=== PATIENT | female | born 2000 | race Caucasian/White ===

== ENCOUNTER 2020-04-09 12:54 | Outpatient (CLI) | payer BC, MEDICAID, SELFPAY ==
--- NOTE | ~2020-04-09 | US_ITS ---
EXAMINATION: US OB <=14 wk fetus w TV DATE: 04/09/2020 13:37 INDICATION: First trimester dating TECHNIQUE: Real-time pelvic transabdominal and transvaginal ultrasound was performed. COMPARISON: None. FINDINGS: The uterus measures 9.2 x 5.7 x 6.1 cm. There is an intrauterine gestational sac. A yolk s ac is identified. heart motion is identified measuring 135 beats per minute (bpm) by M-mode Dop pler. The crown rump length measures 8 mm , which correlates with an estimated gestational age of 6 weeks and 5 day(s) (+/-) 4 day(s). The right ovary measures 3.3 x 1.7 x 2.2 cm. The left ovary measures 2.6 x 1.5 x 1.7 cm. There is nor mal vascular flow in the ovaries. There is no free fluid in the pelvis. IMPRESSION: 1. Live intrauterine with an estimated gestational age of 6 weeks and 5 day(s) (+/-) 4 day( s) and an estimated delivery date of 11/28/2020. Reviewed, dictated and finalized at location A. IMPRESSION: 1. Live intrauterine with an estimated gestational age of 6 weeks and 5 day(s) (+/-) 4 day(s) and an estimated delivery date of 11/28/2020.
== END 2020-04-09 12:55 | disposition home or self-care (01) ==
PROVIDERS: PCP Pediatrics; Visit Provider Nurse Practitioner
DX: Z36.87 Encounter for antenatal screening for uncertain dates (principal); Z3A.01 Less than 8 weeks gestation of pregnancy
CPT/HCPCS: 76801; 76817

== ENCOUNTER 2020-07-03 08:37 | Outpatient (CLI) | payer BC, MEDICAID, SELFPAY ==
--- NOTE | ~2020-07-03 | US_ITS ---
EXAMINATION: US OB /maternal detail DATE: 07/03/2020 09:48 INDICATION: Second trimester anatomic survey TECHNIQUE: Real-time ultrasound of the pelvis was performed. COMPARISON: None. FINDINGS: There is a single living fetus in vertex presentation. The placenta is anterior. heart rate is 142 beats per minute (bpm). cardiac activity and movement are noted. The amniotic fluid index is subjectively normal. The diaphragm, stomach, kidneys, bladder, and three-vessel cord are not well evaluated due to p ositioning and body habitus. The following anatomy was identified as normal: 4 chamber heart cord insertion spine ventricles cisterna magna cerebellum The following biometric data were obtained: Biparietal diameter (BPD): 4.0 cm; head circumference (HC): 15.4 cm; abdominal circumference (AC): 11 .1 cm; femur length (FL): 2.2 cm. The head circumference to abdominal circumference ratio is greater than two standard deviations above the mean. These measurements are otherwise concordant. Estimated weight is 178 g +/- 26 g, which correlates with the <3rd percentile when 11/27/2020 is used as estimated date of delivery. As single measurements, these parameters are each equal to the following estimated gestational ages w ith ranges of +/- 2 standard deviations: BPD: 18 weeks 3 days +/- 1 weeks 5 days. HC: 18 weeks 3 days +/- 1 weeks 3 days. AC: 17 weeks 0 days +/- 1 weeks 5 days. FL: 16 weeks 5 days +/- 1 weeks 3 days. estimated gestational age based solely on measurements from this exam is 17 weeks 5 days +/- 1 weeks 2 days. IMPRESSION: 1. Single living fetus in vertex presentation. 2. Estimated weight is 178 g +/- 26 g, which correlates with the <3rd percentile when 11/27/2020 is used as estimated date of delivery. 3. Incomplete anatomic survey due to positioning and body habitus. 4. It circumference to abdominal circumference ratio greater than two standard deviations of mean. Reviewed, dictated and finalized at location B. IMPRESSION: 1. Single living fetus in vertex presentation. 2. Estimated weight is 178 g +/- 26 g, which correlates with the <3rd per centile when 11/27/2020 is used as estimated date of delivery. 3. Incomplete anatomic survey due to positioning and body habitus. 4. It circumference to abdominal circumference ratio greater than two standard deviations of mean.
== END 2020-07-03 08:38 | disposition home or self-care (01) ==
LOC: ANHIMG 08:41
PROVIDERS: Visit Provider Obstetrics & Gynecology Gynecology
DX: Z36.89 Encounter for other specified antenatal screening (principal); Z3A.17 17 weeks gestation of pregnancy
CPT/HCPCS: 76805

== ENCOUNTER 2020-07-08 11:01 | Observation (INO) | payer BC, MEDICAID, SELFPAY ==
[2020-07-08] VITALS (26 sets, daily range): BP systolic 103–187; BP diastolic 60–128; PULSE 91–122; RESP 8–17; TEMP 36.5–36.6; O2SAT 98–100; BMI 39.9
--- NOTE | ~2020-07-08 | XR_ITS ---
XR knee LT min 4V 07/08/2020 12:52 INDICATION: Left knee pain after fall PROCEDURE: 4 views left knee COMPARISON: No prior studies for comparison. FINDINGS: Fracture, dislocation or subluxation is not identified. No significant joint effusion. The soft tissues appear within normal limits. No foreign bodies are identified. IMPRESSION: 1: NO ACUTE BONE OR JOINT ABNORMALITY IDENTIFIED. Reviewed, dictated and finalized at location B.
--- NOTE | 2020-07-08 12:14 | ED.FALL ---
HPI - Fall General Chief Complaint: Fall <FRANDY Murphy Last Filed: 07/08/20 16:08> Stated Complaint: Fall, L knee pain, 19wk preg <FRANDY Murphy Last Filed: 07/08/20 16:08> Time Seen by Provider: 07/08/20 11:35 <Luisa Harrison PA-C - Last Filed: 07/08/20 16:08> Source: patient <FRANDY Murphy Last Filed: 07/08/20 16:08> Mode of arrival: wheelchair <FRANDY Murphy Last Filed: 07/08/20 16:08> Limitations: no limitations <FRANDY Murphy Last Filed: 07/08/20 16:08> History of Present Illness HPI Narrative: This is a 20-year-old , that presents to the emergency department for left knee pain after a fall today. Reports she was running and tripped and fell forward. Reports landing on the left knee. Reports since she has had anterior knee pain. Pain is worse with movement and relieved with rest. Denies hitting her head, loss of consciousness, or other injuries. Reports she is 19 weeks and wanted to ensure that the baby was okay. Denies any injury to her abdomen. She has inconsistently felt the baby move so far this . Reports she has been following with her OB, Dr. Prather for her high blood pressure and monitoring this at home. She is not currently on any medications for hypertension. <FRANDY Murphy Last Filed: 07/08/20 16:08> Related Data Home Medications: Home Medications Medication Instructions Recorded Confirmed No Home Medications 07/08/20 07/08/20 <FRANDY Murphy Last Filed: 07/08/20 16:08> Allergies/Adverse Reactions: Allergies Allergy/AdvReac Type Severity Reaction Status Date / Time No Known Allergies Allergy Verified 07/08/20 11:23 <FRANDY Murphy Last Filed: 07/08/20 16:08> Review of Systems Review of Systems: Narrative: CONSTITUTIONAL: Denies fever CARDIOVASCULAR: Denies chest pain, edema. RESPIRATORY: Denies dyspnea. GASTROINTESTINAL: Denies abdominal pain GENITOURINARY: Denies dysuria or hematuria. MUSCULOSKELETAL: Reports joint pain, and myalgia. NEUROLOGIC: Denies headache <Luisa Harrison PA-C - Last Filed: 07/08/20 16:08> All systems reviewed & are unremarkable except as noted in HPI and below <Luisa Harrison PA-C - Last Filed: 07/08/20 16:08> [facility] Family History Family History: Family History (Updated 06/21/14 @ 07:13 by DOCTOR UNKNOWN) Grandparent Hypertension Cerebrovascular accident Family history of type 2 diabetes mellitus <Luisa Harrison PA-C - Last Filed: 07/08/20 16:08> Social History Social History: Social History Smoking status: Never smoker Alcohol intake: never Gender identity (if verbalized by the patient): Female <Luisa Harrison PA-C - Last Filed: 07/08/20 16:08> Exam Narrative: Exam Narrative: GENERAL: Well-appearing, well-nourished, and in no acute distress. HEAD: Normocephalic, atraumatic. EYES: EOMI. CHEST: Clear to auscultation. No respiratory distress. No wheezes rales or rhonchi HEART: Regular rate and rhythm. No murmur heard. Normal peripheral pulses. ABDOMEN: Soft, nontender, nondistended, normal active bowel sounds. EXTREMITIES: Normal range of motion. No edema or obvious deformity. Tender to palpation of the left patella. Normal DP pulses SKIN: Warm, dry, no rash. NEURO: No focal deficits. Alert and oriented x3. PSYCH: Normal mood and affect <Luisa Harrison PA-C - Last Filed: 07/08/20 16:08> Course CONFERENCE ORGANIZER/PA Physician Supervision For this patient encounter, I reviewed the CONFERENCE ORGANIZER or PA documentation, treatment plan, and medical decision making; and I had [id number] time with this patient. Patient presented to ER to get her fetus check after a fall. She was found to be hypertensive. She reports she has chronic history of hypertension but she has never been placed on medication. She denies chest pain, headache, dizziness or sob. She is sitting in bed in no acute d
[2020-07-08 12:37] LABS: Basophils Percent Auto 0.2 % (0.2-1.2); Eosinophils Absolute Auto 0.1 K/mm3 (0-0.3); Eosinophils Percent Auto 1.3 % (0-4.4); Hematocrit 34.2 % (37.0-47.0); Hemoglobin 11.6 g/dL (12.0-15.0); Immature Granulocyte Absolute 0.06 K/mm3 (0.00-0.031); Immature Granulocyte Percent A 0.6 % (0-0.5); Lymphocytes Absolute Auto 1.76 K/mm3 (0.9-3.2); Lymphocytes Percent Auto 17.5 % (18.3-44.2); Mean Corpuscular HGB Conc 33.9 g/dl (32-36); Mean Corpuscular Hemoglobin 27.8 pg (26-34); Mean Platelet Volume 10.4 fl (7.4-10.4); Monocytes Absolute Auto 0.4 K/mm3 (0.1-0.6); Monocytes Percent Auto 3.7 % (2.6-8.5); Neutrophils Absolute Auto 7.7 K/mm3 (1.3-6.7); Neutrophils Percent Auto 76.7 % (45.5-73.1); Platelet Count Result 248 k/mm3 (150-375); Red Blood Count 4.17 M/mm3 (4.2-5.4); Red Cell Distribution Width 15.3 % (11.5-14.5); White Blood Count 10.1 K/mm3 (4.5-10.0)
[2020-07-08 12:53] LABS: Alanine Aminotransferase 11 U/L (4-35); Alkaline Phosphatase 84 U/L (38-126); Anion Gap 7 mmol/L (8-16); Aspartate Amino Transferase 26 U/L (14-36); Bilirubin,Total 0.5 mg/dL (0.2-1.3); Blood Urea Nitrogen 6 mg/dL (7-17); Calcium 9.2 mg/dL (8.4-10.2); Carbon Dioxide 22 mmol/L (22-30); Chloride 105 mmol/L (98-107); Estimated CRCL calculation 207 ml/min; Estimated Glomerular Filt Rate > 60; Glucose 98 mg/dL (65-105); Potassium 4.2 mmol/L (3.4-5.0); Sodium 134 mmol/L (137-145)
[2020-07-08] MEDS: hydrALAZINE HCL 20 MG/ML VIAL 10 MG IM (13:14)
[2020-07-08 13:32] LABS: Add Urine Microscopic? YES; Appearance Urine Cloudy (Clear); Bacteria Urine 1+ /hpf; Bilirubin Urine Negative (Negative); Blood Urine Negative (Negative); Color Urine Yellow (Yellow); Glucose Urine UA Negative (Negative); Ketones Urine Negative (Negative); Leukocyte Esterase Ur 3+ LEU/UL (Negative); Mucus Urine Few /lpf; Nitrate Urine Negative (Negative); Protein Urine 2+ mg/dL (Negative); RBC Urine 21-50 /hpf (0-2); Squamous Epithelial Cell Urine Many /hpf (Few); Transitional Epi Cells Urine Rare /hpf (None Seen); Urobilinogen Urine Negative mg/dL (<2.0); WBC Urine >75 /hpf
[2020-07-08] MEDS: LABETALOL HCL INJ 100 MG/20 ML VIAL 20 MG IV PUSH (15:00)
--- NOTE | 2020-07-08 15:30 | OBADM ---
This patient, Meme Griffin, admitted to the OB room OB Post 111 for observation. Patient/family oriented to hospital policies and general routines including ID bracelet, bed and alarms, visiting hours, pain management, procedures, bathroom and other care routines, personal items, smoking policy, room service/diet, and visiting hours. Patient/Family are encouraged to report perceived risks to care and to ask questions if they do not understand what they are told or what they should do.
[2020-07-08 17:20] LABS: Add Urine Microscopic? YES; Appearance Urine Cloudy (Clear); Bacteria Urine 1+ /hpf; Bilirubin Urine Negative (Negative); Blood Urine Negative (Negative); Color Urine Yellow (Yellow); Glucose Urine UA Negative (Negative); Ketones Urine 2+ mg/dL (Negative); Leukocyte Esterase Ur 3+ LEU/UL (NEGATIVE); Mucus Urine Rare /lpf; Nitrate Urine Negative (Negative); Protein Urine 1+ mg/dL (Negative); Squamous Epithelial Cell Urine Many /hpf (Few); Urobilinogen Urine Negative mg/dL (<2.0); WBC Urine 51-75 /hpf (0-3)
[2020-07-08] MEDS: NITROFURANTOIN MONOHYD MACROCR 100 MG CAP PO (18:43)
--- NOTE | 2020-07-22 09:56 | PM.OBTRLD ---
OB - Triage/Final Diagnosis Evaluation Laboratory results: Laboratory Tests 07/08/20 07/08/20 07/08/20 12:28 12:28 13:10 WBC 10.1 H RBC 4.17 L Hgb 11.6 L Hct 34.2 L MCV 82.0 MCH 27.8 MCHC 33.9 RDW 15.3 H Plt Count 248 MPV 10.4 Immature Gran % (Auto) 0.6 H Neut % (Auto) 76.7 H Lymph % (Auto) 17.5 L Keith % (Auto) 3.7 Eos % (Auto) 1.3 Baso % (Auto) 0.2 Lymph # (Auto) 1.76 Keith # (Auto) 0.4 Eos # (Auto) 0.1 Baso # (Auto) 0.0 Abs Immat Gran (auto) 0.06 H Absolute Neuts (auto) 7.7 H Absolute Nucleated RBC 0.0 Nucleated RBC % 0.0 Sodium 134 L Potassium 4.2 Chloride 105 Carbon Dioxide 22 Anion Gap 7 L BUN 6 L Creatinine 0.40 L Estim Creat Clear Calc 207 Estimated GFR > 60 Glucose 98 Calcium 9.2 Total Bilirubin 0.5 AST 26 ALT 11 Alkaline Phosphatase 84 Total Protein 8.0 Albumin 4.0 Urine Color Yellow Urine Appearance Cloudy H Urine pH 5.0 Ur Specific [place] 1.020 Urine Protein 2+ H Urine Glucose (UA) Negative Urine Ketones Negative Ur Blood (Man) Negative Urine Nitrate Negative Urine Bilirubin Negative Urine Urobilinogen Negative Ur Leukocyte Esterase Leukocyte Esterase Rfl 3+ H Urine RBC 21-50 H Urine WBC >75 H Ur Squamous Epith Cells Many H Ur Transition Epith Cell Rare Urine Bacteria 1+ H Hyaline Casts Urine Mucus Few H 07/08/20 17:09 WBC RBC Hgb Hct MCV MCH MCHC RDW Plt Count MPV Immature Gran % (Auto) Neut % (Auto) Lymph % (Auto) Keith % (Auto) Eos % (Auto) Baso % (Auto) Lymph # (Auto) Keith # (Auto) Eos # (Auto) Baso # (Auto) Abs Immat Gran (auto) Absolute Neuts (auto) Absolute Nucleated RBC Nucleated RBC % Sodium Potassium Chloride Carbon Dioxide Anion Gap BUN Creatinine Estim Creat Clear Calc Estimated GFR Glucose Calcium Total Bilirubin AST ALT Alkaline Phosphatase Total Protein Albumin Urine Color Yellow Urine Appearance Cloudy H Urine pH 5.0 Ur Specific [place] 1.020 Urine Protein 1+ H Urine Glucose (UA) Negative Urine Ketones 2+ H Ur Blood (Man) Negative Urine Nitrate Negative Urine Bilirubin Negative Urine Urobilinogen Negative Ur Leukocyte Esterase 3+ H Leukocyte Esterase Rfl Urine RBC 11-20 H Urine WBC 51-75 H Ur Squamous Epith Cells Many H Ur Transition Epith Cell Urine Bacteria 1+ H Hyaline Casts 5-9 H Urine Mucus Rare Final Diagnosis (1) PIH ( induced hypertension): Code(s): O13.9 - Gestational [-induced] hypertension without significant proteinuria, unspecified trimester Status: Acute
== END 2020-07-08 20:14 | disposition home or self-care (01) ==
LOC: ANHED 15:07 → ANHOBPP 16:06
PROVIDERS: Physician Assistant; Admitting Provider Obstetrics & Gynecology Gynecology; Emergency Provider General Practice; Visit Provider Obstetrics & Gynecology Gynecology
DX: O13.2 Gestational [pregnancy-induced] hypertension without significant proteinuria, second trimester (principal); O26.92 Pregnancy related conditions, unspecified, second trimester; Z3A.19 19 weeks gestation of pregnancy; M25.562 Pain in left knee; W01.0XXA Fall on same level from slipping, tripping and stumbling without subsequent striking against object, initial encounter
CPT/HCPCS: 36415; 73564; 80053; 81001; 85025; 87086; 87088; 96372; 96374; 99285; A9270; G0378; G0379; J0360

== ENCOUNTER 2020-08-08 22:26 | Observation (INO) | payer BC, MEDICAID, SELFPAY ==
[2020-08-08] VITALS (15 sets, daily range): BP systolic 170–211; BP diastolic 90–122; PULSE 92–106; O2SAT 100; BMI 48.2
--- NOTE | 2020-08-08 22:59 | OBADM ---
This patient, Meme Griffin, admitted to the OB room OB Post 116 for observation. Patient/family oriented to hospital policies and general routines including ID bracelet, bed and alarms, visiting hours, pain management, procedures, bathroom and other care routines, personal items, smoking policy, room service/diet, and visiting hours. Patient/Family are encouraged to report perceived risks to care and to ask questions if they do not understand what they are told or what they should do.
[2020-08-08] MEDS: LABETALOL HCL 100 MG TABLET 200 MG PO (23:25)
[2020-08-08 23:47] LABS: Basophils Percent Auto 0.2 % (0.2-1.2); Eosinophils Absolute Auto 0.1 K/mm3 (0-0.3); Eosinophils Percent Auto 0.7 % (0-4.4); Hematocrit 35.7 % (37.0-47.0); Hemoglobin 12.2 g/dL (12.0-15.0); Immature Granulocyte Absolute 0.07 K/mm3 (0.00-0.031); Immature Granulocyte Percent A 0.4 % (0-0.5); Lymphocytes Absolute Auto 2.04 K/mm3 (0.9-3.2); Lymphocytes Percent Auto 12.2 % (18.3-44.2); Mean Corpuscular HGB Conc 34.2 g/dl (32-36); Mean Corpuscular Hemoglobin 28.4 pg (26-34); Mean Platelet Volume 10.6 fl (7.4-10.4); Monocytes Absolute Auto 0.6 K/mm3 (0.1-0.6); Monocytes Percent Auto 3.7 % (2.6-8.5); Neutrophils Absolute Auto 13.8 K/mm3 (1.3-6.7); Neutrophils Percent Auto 82.8 % (45.5-73.1); Platelet Count Result 244 k/mm3 (150-375); Red Cell Distribution Width 14.9 % (11.5-14.5); White Blood Count 16.7 K/mm3 (4.5-10.0)
[2020-08-08 23:55] LABS: Add Urine Microscopic? YES; Appearance Urine Cloudy (Clear); Bacteria Urine Trace /hpf; Bilirubin Urine Negative (Negative); Blood Urine Negative (Negative); Color Urine Yellow (Yellow); Glucose Urine UA Negative (Negative); Ketones Urine 1+ mg/dL (Negative); Leukocyte Esterase Ur 1+ LEU/UL (NEGATIVE); Mucus Urine Few /lpf; Nitrate Urine Negative (Negative); Protein Urine 2+ mg/dL (Negative); Specific Grav Ur 1.017 (1.001-1.035); Squamous Epithelial Cell Urine Many /hpf (Few); Urobilinogen Urine Negative mg/dL (<2.0); WBC Urine 21-30 /hpf (0-3)
[2020-08-09] VITALS (28 sets, daily range): BP systolic 117–188; BP diastolic 62–107; PULSE 88–111; TEMP 36.7
[2020-08-09] LABS: Alanine Aminotransferase 21 U/L (4-35); Albumin Level 3.8 g/dL (3.5-5.1); Alkaline Phosphatase 115 U/L (38-126); Anion Gap 9 mmol/L (8-16); Aspartate Amino Transferase 33 U/L (14-36); Bilirubin,Total 0.6 mg/dL (0.2-1.3); Blood Urea Nitrogen 6 mg/dL (7-17); Calcium 9.1 mg/dL (8.4-10.2); Carbon Dioxide 25 mmol/L (22-30); Chloride 103 mmol/L (98-107); Estimated CRCL calculation 205 ml/min; Estimated Glomerular Filt Rate > 60; Glucose 111 mg/dL (65-105); Potassium 3.7 mmol/L (3.4-5.0); Sodium 137 mmol/L (137-145); Uric Acid 5.2 mg/dL (2.5-7.5)
--- NOTE | 2020-08-09 01:01 | PC.NURSE ---
DR BENÍTEZ PAGED AT [phone]. RETURNED PAGE AT [phone]. UPDATED ON PT ADMIT FOR ELEVATED BP AND EPIGASTRIC PAIN. UPDATED ON BP VS, FHT, AND HX. NEW ORDERS RECEIVED.
--- NOTE | 2020-08-09 01:02 | PC.NURSE ---
DR BENÍTEZ PAGED AT [phone]. RETURNED PAGE AT 0021. UPDATED ON LABETATOL GIVEN. UPDATED ON PT BP AND LAB RESULTS. UPDATED ON PT C/O EPIGASTRIC PAIN RATED AT 6. NEW ORDERS RECEIVED.
--- NOTE | 2020-08-09 01:03 | PC.NURSE ---
WENT IN ROOM AT 0035 TO START IV AND GIVE IV MEDICATIONS PER ORDERS. PT SLEEPING ON LEFT SIDE. BP 177/84. WAITED TO START IV TO SEE NEXT BP.
--- NOTE | 2020-08-09 01:05 | PC.NURSE ---
DR BENÍTEZ PAGED AT [phone]. RETURNED PAGE AT [phone]. UPDATED ON PT BP DOWN TO 160/77 AND SLEEPING. ORDER RECEIVED TO HOLD IV START AND IV MEDICATIONS. NEW MED ORDERS RECEIVED.
[2020-08-09 01:19] LABS: Creatinine Urine 91.5 mg/dL; Total Protein Urine Random 156 mg/dL
[2020-08-09] MEDS: LABETALOL HCL 100 MG TABLET 200 MG PO ×2 (07:02→14:39)
[2020-08-09] MEDS: NIFEdipine 30 MG TAB.ER.24 PO (08:24)
[2020-08-09] MEDS: LABETALOL HCL 100 MG TABLET PO (14:39)
--- NOTE | 2020-08-09 15:24 | P.HP_ITS ---
Obstetrics - Admit Note Admission Note: record reviewed. No pertinent additions to the history and/or any subsequent changes in the physical findings that are not consistent with the expected course of the were found. Additions to the history and/or subsequent changes in the physical findings follow .20 y/o primip 24 weeks with chronic hypertension. Patient has not taken blood pressure meds since Wednesday..Patient blood pressure meds were changed to labetalol and had not picked up her medications yet and did not take any of her other bp meds or call her dancer or choreographer. Patient denies headache does report some epigastric pain not sure if heartburn or not. Patient came in because her pressure was high when she checked it. FWB reassuring Bp range 150-220/90-113 Labs normal , beside proteinuria Patient started on Labetalol 300 mg po TID and Procardia 30 xl qday. paln d/c home on bedrest with stable blood pressures. None.
--- NOTE | 2020-08-09 18:56 | PC.NURSE ---
1809- Dr. Prather on floor, patient to be discharged to home with prescriptions for labetalol 300 mg TID and Procardia 30 XL. To follow up in office.
== END 2020-08-09 18:50 | disposition home or self-care (01) ==
PROVIDERS: Admitting Provider Obstetrics & Gynecology; Visit Provider Obstetrics & Gynecology Gynecology
DX: O16.2 Unspecified maternal hypertension, second trimester (principal); Z3A.24 24 weeks gestation of pregnancy
CPT/HCPCS: 36415; 59025; 80053; 81001; 82570; 84156; 84550; 85025; 87086; 87088; A9270; G0378; G0379

== ENCOUNTER 2020-08-15 08:43 | Outpatient (CLI) | payer BC, MEDICAID, SELFPAY ==
--- NOTE | ~2020-08-15 | US_ITS ---
EXAMINATION: US OB /maternal detail DATE: 08/15/2020 09:28 INDICATION: Incomplete prior anatomic survey. TECHNIQUE: Multiple obstetric sonographic images performed. FINDINGS: There is a single living fetus in vertex presentation. The placenta is fundal. Negligible if any amn iotic fluid identified on the provided images which is new since the prior study. heart rate o f 157 beats per minute. The following anatomy was identified as normal: Diaphragm Stomach Kidneys Bladder 3 vessel cord The following biometric data were obtained: BPD: 5.5 cm -> 22 weeks 5 days Head circumference: 20.1 cm -> 22 weeks 2 days Abdominal circumference: 14.5 cm -> 19 weeks 6 days Femur length: 3.3 cm -> 20 weeks 2 days Discordant biometric data with. Head circumference to abdominal circumference ratio: 1.39 (normal range 1.09-1.24). Femur length to head circumference ratio: 16.37 (normal range 16.61-20.27). Estimated weight: 348 g (+/-) 52 g. or 12 oz. (+/-) 2 oz. IMPRESSION: 1. Single living fetus with vertex presentation with heart rate of 157 bpm. 2. Oligohydramnios which is new since the prior study. Correlate for leaking fluids. Dr. Mejia dis cussed these findings Jocelyn Parikh, the nurse for Dr. Prather at 10:10 AM. 3. Estimated weight is <3rd percentile by Hadlock criteria when 11/27/2020 is used as the JODY. Pl ease correlate with clinical information or earlier ultrasounds for most accurate JODY. 3. Incomplete portion of the survey including the diaphragm, stomach, kidneys, bladder and thre e-vessel cord appear normal although visualization remains poor due to body habitus and the dearth of amniotic fluid. Reviewed, dictated and finalized at location A. IMPRESSION: 1. Single living fetus with vertex presentation with heart rate of 157 b pm. 2. Oligohydramnios which is new since the prior study. Correlate for leaking fl uids. Dr. Mejia discussed these findings Jocelyn Parikh, the nurse for Dr. Aniyah garcia at 10:10 AM. 3. Estimated weight is <3rd percentile by Hadlock criteria when 11/27/2020 is used as the JODY. Please correlate with clinical information or earlier ultra sounds for most accurate JODY. 3. Incomplete portion of the survey including the diaphragm, stomach, kid neys, bladder and three-vessel cord appear normal although visualization remain s poor due to body habitus and the dearth of amniotic fluid.
== END 2020-08-15 08:44 | disposition home or self-care (01) ==
LOC: ANHIMG 08:49
PROVIDERS: Visit Provider Obstetrics & Gynecology Gynecology
DX: Z36.89 Encounter for other specified antenatal screening (principal); O41.02X0 Oligohydramnios, second trimester, not applicable or unspecified; Z3A.00 Weeks of gestation of pregnancy not specified
CPT/HCPCS: 76805

== ENCOUNTER 2020-08-15 16:41 | Observation (INO) | payer BC, MEDICAID, SELFPAY ==
[2020-08-15 17:00] VITALS: RESP 16
[2020-08-15 17:12] VITALS: BP 148/87; PULSE 86
[2020-08-15 17:41] LABS: Basophils Percent Auto 0.3 % (0.2-1.2); Eosinophils Absolute Auto 0.2 K/mm3 (0-0.3); Eosinophils Percent Auto 1.8 % (0-4.4); Hematocrit 32.4 % (37.0-47.0); Hemoglobin 10.8 g/dL (12.0-15.0); Immature Granulocyte Absolute 0.07 K/mm3 (0.00-0.031); Immature Granulocyte Percent A 0.6 % (0-0.5); Lymphocytes Absolute Auto 2.55 K/mm3 (0.9-3.2); Lymphocytes Percent Auto 23.5 % (18.3-44.2); Mean Corpuscular HGB Conc 33.3 g/dl (32-36); Mean Corpuscular Hemoglobin 28.4 pg (26-34); Mean Corpuscular Volume 85.3 fl (80-100); Mean Platelet Volume 10.8 fl (7.4-10.4); Monocytes Absolute Auto 0.4 K/mm3 (0.1-0.6); Neutrophils Absolute Auto 7.6 K/mm3 (1.3-6.7); Neutrophils Percent Auto 69.8 % (45.5-73.1); Platelet Count Result 225 k/mm3 (150-375); Red Cell Distribution Width 15.2 % (11.5-14.5); White Blood Count 10.8 K/mm3 (4.5-10.0)
[2020-08-15 17:53] LABS: Alanine Aminotransferase 15 U/L (4-35); Albumin Level 3.6 g/dL (3.5-5.1); Alkaline Phosphatase 101 U/L (38-126); Anion Gap 10 mmol/L (8-16); Aspartate Amino Transferase 20 U/L (14-36); Bilirubin,Total 0.2 mg/dL (0.2-1.3); Blood Urea Nitrogen 8 mg/dL (7-17); Carbon Dioxide 22 mmol/L (22-30); Chloride 105 mmol/L (98-107); Estimated Glomerular Filt Rate > 60; Glucose 99 mg/dL (65-105); Sodium 137 mmol/L (137-145); Uric Acid 6.1 mg/dL (2.5-7.5)
[2020-08-15 18:45] LABS: Add Urine Microscopic? YES; Appearance Urine Cloudy (Clear); Bacteria Urine Trace /hpf; Bilirubin Urine Negative (Negative); Blood Urine Negative (Negative); Color Urine Yellow (Yellow); Creatinine Urine 132.7 mg/dL; Glucose Urine UA Negative (Negative); Ketones Urine Negative (Negative); Leukocyte Esterase Ur 3+ LEU/UL (NEGATIVE); Mucus Urine Few /lpf; Nitrate Urine Negative (Negative); Protein Urine 1+ mg/dL (Negative); Specific Grav Ur 1.018 (1.001-1.035); Squamous Epithelial Cell Urine Many /hpf (Few); Total Protein Urine Random 19 mg/dL; Urobilinogen Urine Negative mg/dL (<2.0); WBC Urine 16-20 /hpf (0-3)
--- NOTE | 2020-08-15 18:53 | OBADM ---
This patient, Meme Griffin, admitted to the OB room OB Post 112 for observation. Patient/family oriented to hospital policies and general routines including ID bracelet, bed and alarms, visiting hours, pain management, procedures, bathroom and other care routines, personal items, smoking policy, room service/diet, call light, and visiting hours. Patient/Family are encouraged to report perceived risks to care and to ask questions if they do not understand what they are told or what they should do.
[2020-08-15 22:31] VITALS: BP 138/82; PULSE 96; TEMP 37.1
[2020-08-15 22:52] VITALS: PULSE 96
[2020-08-15] MEDS: LABETALOL HCL 100 MG TABLET 300 MG PO (22:52)
--- NOTE | 2020-08-15 23:03 | PC.NURSE ---
1830 PT appears comfortable. Visiting with mother.
[2020-08-16] VITALS (14 sets, daily range): BP systolic 136–157; BP diastolic 67–90; PULSE 85–100; RESP 16; TEMP 36.2–36.9; BMI 46.0
--- NOTE | 2020-08-16 05:53 | PC.NURSE ---
0500 Patient has been sleeping. Pt states she woke up with aching in left upper outer quadrant of abdomen. No blurred vision. No nausea. Abdomen soft. Pt states she has been having normal bowel movements. Warm blanket applied to area. Pt advised to call out if pain does not improve or worsens.
--- NOTE | 2020-08-16 05:56 | PC.NURSE ---
0535 Pt is sleeping and does not awake on entering room. Left undisturbed at this time.
[2020-08-16] MEDS: LABETALOL HCL 100 MG TABLET 300 MG PO ×3 (07:07→23:17)
[2020-08-16] MEDS: NIFEdipine 30 MG TAB.ER.24 PO (08:47)
--- NOTE | 2020-08-16 16:01 | WPDOBADMIT ---
Obstetrics - Admit Note Admission Note: record reviewed. Pertinent additions to the history and/or any subsequent changes in the physical findings that are not consistent with the expected course of the were found. Additions to the history and/or subsequent changes in the physical findings follow: Admitted from the office yesterday after Level 2 u/s showed absolute oligohydramnios and IUGR at 340 g. MFM suspects secondary to placental insufficiency due to BP. MFM recommended a few day admit to observe BP, recheck labs several times, and check urine. They plan to repeat u/s this coming . VSS abdomen soft, nt FHTs + a/p 1: IUP 25 wks 2. absolute oligohydramnios-severe IUGR: continue to monitor with MFM 3. CHTN r/o superimposed preeclampsia-BP's stable on current meds, labs ok with uric acid elevated at 6.1 and mild anemia, 24 hour urine almost collected. Repeat labs at 1700
[2020-08-16 17:22] LABS: Hematocrit 32.5 % (37.0-47.0); Hemoglobin 10.8 g/dL (12.0-15.0); Mean Corpuscular HGB Conc 33.2 g/dl (32-36); Mean Corpuscular Hemoglobin 28.2 pg (26-34); Mean Corpuscular Volume 84.9 fl (80-100); Mean Platelet Volume 10.3 fl (7.4-10.4); Platelet Count Result 212 k/mm3 (150-375); Red Blood Count 3.83 M/mm3 (4.2-5.4); White Blood Count 10.7 K/mm3 (4.5-10.0)
[2020-08-16 17:34] LABS: Alanine Aminotransferase 20 U/L (4-35); Albumin Level 3.6 g/dL (3.5-5.1); Alkaline Phosphatase 99 U/L (38-126); Anion Gap 12 mmol/L (8-16); Aspartate Amino Transferase 26 U/L (14-36); Bilirubin,Total 0.4 mg/dL (0.2-1.3); Blood Urea Nitrogen 7 mg/dL (7-17); Calcium 9.2 mg/dL (8.4-10.2); Carbon Dioxide 20 mmol/L (22-30); Chloride 104 mmol/L (98-107); Estimated CRCL calculation 208 ml/min; Estimated Glomerular Filt Rate > 60; Glucose 143 mg/dL (65-105); Potassium 3.6 mmol/L (3.4-5.0); Sodium 136 mmol/L (137-145); Uric Acid 5.7 mg/dL (2.5-7.5)
[2020-08-16 18:07] LABS: Collection Time Urine 24 HOURS
--- NOTE | 2020-08-16 18:07 | PC.NURSE ---
called Dr. Prather with PIH lab result. no new ordered.
[2020-08-16 18:12] LABS: Patient Weight 244 Lbs; Total Volume 24 Hour Urine 2700 ml
[2020-08-16 18:18] LABS: Creatinine Clearance Urine 203.6 ml/min (75-125); Creatinine Urine 64.3 mg/dL
[2020-08-16 20:24] LABS: Total Protein Urine 24 Hr 475 mg/24hr (0-149); Total Protein Urine Random 17.6 mg/dL (0.0-11.9)
[2020-08-17] VITALS (19 sets, daily range): BP systolic 136–168; BP diastolic 66–116; PULSE 84–92; RESP 15–16; TEMP 36.3–37.2
[2020-08-17] MEDS: LABETALOL HCL 100 MG TABLET 300 MG PO (07:00)
[2020-08-17] MEDS: POLYSACCHARIDE IRON COMPLEX 150 MG CAPSULE PO (08:44)
[2020-08-17] MEDS: NIFEdipine 30 MG TAB.ER.24 PO (08:44)
[2020-08-17] MEDS: LABETALOL HCL 100 MG TABLET 400 MG PO ×3 (10:32→21:25)
--- NOTE | 2020-08-17 10:41 | PM.OBPNVD ---
OB - PN: Subj Subjective Date/time seen: 08/17/20 10:41 Patient comments: no complaints and other (had epigastric pain now resolved) OB - PN: Obj Data Labs CBC & Chem 7: 08/16/20 17:09 08/16/20 17:09 Labs: Laboratory Results - last 24 hr 08/15/20 08/16/20 08/16/20 17:57 17:09 17:09 WBC 10.7 H RBC 3.83 L Hgb 10.8 L Hct 32.5 L MCV 84.9 MCH 28.2 MCHC 33.2 RDW 15.0 H Plt Count 212 MPV 10.3 Sodium 136 L Potassium 3.6 Chloride 104 Carbon Dioxide 20 L Anion Gap 12 BUN 7 Creatinine 0.40 L Estim Creat Clear Calc 208 Estimated GFR > 60 Glucose 143 H Uric Acid 5.7 Calcium 9.2 Total Bilirubin 0.4 AST 26 ALT 20 Alkaline Phosphatase 99 Total Protein 7.0 Albumin 3.6 U Random Total Protein 17.6 H Ur 24 Hour Volume 2700 Urine Creatinine 64.3 Creatinine Clearance 203.6 H Ur Total Protein 24 Hr 475 H OB - PN A/P Assessment and Plan (1) Chronic hypertension with superimposed preeclampsia: Code(s): O11.9 - Pre-existing hypertension with pre-eclampsia, unspecified trimester Status: Acute Assessment and Plan: 24 hour urine 475 BP's trending up increase labetalol 400 mg q 8 continue procardia 30 mg am Plan Comments: IUP 25 3/7 wks Time Spent With Patient Time: Total time spent is greater than 50% in coordination of care (as documented) at patient's floor/unit and/or counseling patient: Exam Const: General: comfortable GI: Inspection: normal to inspection and other (gravid) GI Palp: Yes abdominal tenderness (mild epigastric and RUQ tenderness)
[2020-08-17 16:53] LABS: Hematocrit 34.8 % (37.0-47.0); Hemoglobin 11.8 g/dL (12.0-15.0); Mean Corpuscular HGB Conc 33.9 g/dl (32-36); Mean Corpuscular Hemoglobin 28.4 pg (26-34); Mean Corpuscular Volume 83.9 fl (80-100); Mean Platelet Volume 10.1 fl (7.4-10.4); Platelet Count Result 201 k/mm3 (150-375); Red Blood Count 4.15 M/mm3 (4.2-5.4); Red Cell Distribution Width 14.9 % (11.5-14.5)
[2020-08-17 17:05] LABS: Alanine Aminotransferase 22 U/L (4-35); Albumin Level 3.7 g/dL (3.5-5.1); Alkaline Phosphatase 101 U/L (38-126); Anion Gap 6 mmol/L (8-16); Aspartate Amino Transferase 30 U/L (14-36); Bilirubin,Total 0.4 mg/dL (0.2-1.3); Blood Urea Nitrogen 6 mg/dL (7-17); Calcium 9.3 mg/dL (8.4-10.2); Carbon Dioxide 23 mmol/L (22-30); Chloride 106 mmol/L (98-107); Estimated CRCL calculation 207 ml/min; Estimated Glomerular Filt Rate > 60; Glucose 110 mg/dL (65-105); Potassium 4.1 mmol/L (3.4-5.0); Sodium 135 mmol/L (137-145); Uric Acid 5.3 mg/dL (2.5-7.5)
[2020-08-17] MEDS: DOCUSATE SODIUM 100 MG CAPSULE PO (21:10)
[2020-08-17] MEDS: FAMOTIDINE 20 MG TABLET PO (21:10)
[2020-08-18] VITALS (15 sets, daily range): BP systolic 122–158; BP diastolic 73–91; PULSE 80–97; TEMP 36.8–37.2; BMI 44.9
[2020-08-18] MEDS: LABETALOL HCL 100 MG TABLET 400 MG PO ×3 (05:32→21:57)
--- NOTE | 2020-08-18 08:18 | PM.GYNPNOP ---
VACCINES SOLUTIONS SPECIALIST - A/P Assessment and plan (1) Chronic hypertension with superimposed preeclampsia: Code(s): O11.9 - Pre-existing hypertension with pre-eclampsia, unspecified trimester Status: Acute Assessment and Plan: change proc XL 30 mg BID change labetalol 400mg QID no labs tonight as stable (2) 25 to 26 weeks gestation of : Status: Acute Assessment and Plan: 25 4/7 with IUGR and absolute oligo Time Spent With Patient Time: Total time spent is greater than 50% in coordination of care (as documented) at patient's floor/unit and/or counseling patient: Time with patient: less than 15 minutes VACCINES SOLUTIONS SPECIALIST- PN:Subj Post-Op Subjective Date/time seen: 08/18/20 08:18 No PIH sx. Noted left upper quadrant pain last pm. Resolved again. Exam GI: Inspection: other (gravid) GI Palp: Yes Soft to palpation and No Tenderness to palpation present (GI) VACC[employer]ES SOLUTIONS SPECIALIST - PN: Obj Data Vital Signs Vital Signs: Vital Signs - 24 hr 08/17/20 08:45 08/17/20 10:32 08/17/20 10:35 Temperature Pulse Rate 84 84 88 Respiratory Rate Blood Pressure 156/94 H 163/107 H 08/17/20 10:37 08/17/20 11:33 08/17/20 14:25 Temperature Pulse Rate 84 85 84 Respiratory Rate Blood Pressure 168/89 H 161/96 H 145/81 H 08/17/20 16:41 08/17/20 18:15 08/17/20 19:15 Temperature 98.9 F Pulse Rate 92 85 85 Respiratory Rate 15 Blood Pressure 136/79 157/94 H 156/66 H 08/17/20 20:47 08/17/20 20:49 08/17/20 21:01 Temperature Pulse Rate 90 90 86 Respiratory Rate Blood Pressure 166/116 H 155/96 H 164/91 H 08/17/20 21:16 08/17/20 21:25 08/17/20 21:54 Temperature Pulse Rate 89 89 86 Respiratory Rate Blood Pressure 155/97 H 167/90 H 08/17/20 22:00 08/17/20 23:22 08/18/20 02:16 Temperature 97.6 F Pulse Rate 88 91 Respiratory Rate Blood Pressure 143/77 H 157/91 H 08/18/20 05:23 08/18/20 05:32 08/18/20 08:10 Temperature Pulse Rate 87 80 90 Respiratory Rate Blood Pressure 158/87 H 145/85 H Intake/Output Intake/Output: Intake & Output 08/15/20 08/16/20 08/17/20 08/18/20 23:59 23:59 23:59 23:59 Intake Total 436 564 8317 600 Output Total 100 2450 2875 1100 Balance 500 -1650 -755 -500 Meds/Results Medications: Active Medications Generic Name Dose Route Start Last Admin Trade Name Freq PRN Reason Stop Dose Admin Docusate Sodium 100 mg 08/18/20 09:00 Docusate Sodium 100 Mg Capsule PO Q12HR [facility] Famotidine 20 mg 08/17/20 22:48 Famotidine 20 Mg Tablet PO Q12HR PRN Reflux Labetalol HCl 400 mg 08/17/20 15:00 08/18/20 05:32 Labetalol Hcl 100 Mg Tablet PO 400 mg Q8H GAYE Administration Nifedipine 30 mg 08/16/20 09:00 08/17/20 08:44 Nifedipine 30 Mg Tab.Er.24 PO 30 mg QAM GAYE Administration Polysaccharide Iron Complex 150 mg 08/17/20 08:00 08/17/20 08:44 Polysaccharide Iron Complex 150 Mg Capsule PO 150 mg DAILY@0800 [facility] Administration Labs CBC & Chem 7: 08/17/20 16:47 08/17/20 16:47 Labs: Laboratory Results - last 24 hr 08/17/20 08/17/20 16:47 16:47 WBC 12.0 H RBC 4.15 L Hgb 11.8 L Hct 34.8 L MCV 83.9 MCH 28.4 MCHC 33.9 RDW 14.9 H Plt Count 201 MPV 10.1 Sodium 135 L Potassium 4.1 Chloride 106 Carbon Dioxide 23 Anion Gap 6 L BUN 6 L Creatinine 0.40 L Estim Creat Clear Calc 207 Estimated GFR > 60 Glucose 110 H Uric Acid 5.3 Calcium 9.3 Total Bilirubin 0.4 AST 30 ALT 22 Alkaline Phosphatase 101 Total Protein 8.0 Albumin 3.7
[2020-08-18] MEDS: DOCUSATE SODIUM 100 MG CAPSULE PO ×2 (08:58→20:44)
[2020-08-18] MEDS: NIFEdipine 30 MG TAB.ER.24 PO ×2 (08:59→20:44)
[2020-08-18] MEDS: POLYSACCHARIDE IRON COMPLEX 150 MG CAPSULE PO (09:00)
--- NOTE | 2020-08-18 09:02 | PC.NURSE ---
DR SIDHU HERE AND DISCUSSED PLAN OF CARE TO INCREASE THE PROCARDIA AND LABETALOL INCREASED YESTERDAY. PT HAS NO COMPLAINTS THIS MORNING ABOUT HER LEFT UPPER SIDE PAIN AND APPEARS COMFORTABLE. ASSESSMENT OTHERWISE STABLE AND WILL MONITOR BABY LATER MARCI WISHES TO SLEEP.
--- NOTE | 2020-08-18 19:30 | PC.NURSE ---
Notes made at 1837 were per this RN Berto Brand not Nickie Hoang RN.
[2020-08-19 03:00] VITALS: BP 124/63; PULSE 89
[2020-08-19 05:56] VITALS: BP 128/70; PULSE 84
[2020-08-19 05:58] VITALS: PULSE 84
[2020-08-19] MEDS: LABETALOL HCL 100 MG TABLET 400 MG PO (05:58)
[2020-08-19] MEDS: DOCUSATE SODIUM 100 MG CAPSULE PO (08:27)
[2020-08-19] MEDS: POLYSACCHARIDE IRON COMPLEX 150 MG CAPSULE PO (08:27)
[2020-08-19] MEDS: NIFEdipine 30 MG TAB.ER.24 PO (08:27)
[2020-08-19 08:37] VITALS: BP 113/60; PULSE 83
--- NOTE | 2020-08-19 08:50 | PM.GYNPNOP ---
DIRECTOR AUDIENCE MARKETING - A/P Assessment and plan (1) Chronic hypertension with superimposed preeclampsia: Code(s): O11.9 - Pre-existing hypertension with pre-eclampsia, unspecified trimester Status: Acute Assessment and Plan: BP stable DC home (2) 25 to 26 weeks gestation of : Status: Acute Assessment and Plan: follow up with MFM for u/s Time Spent With Patient Time: Total time spent is greater than 50% in coordination of care (as documented) at patient's floor/unit and/or counseling patient: Time with patient: less than 15 minutes DIRECTOR AUDI[employer]ING- PN:Subj Post-Op Subjective Date/time seen: 08/19/20 08:50 Subjective: patient has no complaints and other (No PIH sx) Exam GI: GI Palp: Yes Soft to palpation and No Tenderness to palpation present (GI) DIRECT[employer] - PN: Obj Data Vital Signs Vital Signs: Vital Signs - 24 hr 08/18/20 10:33 08/18/20 12:15 08/18/20 13:38 Temperature Pulse Rate 92 95 80 Blood Pressure 140/85 151/90 H 08/18/20 14:51 08/18/20 16:46 08/18/20 18:21 Temperature Pulse Rate 97 90 94 Blood Pressure 129/83 122/78 122/75 08/18/20 18:37 08/18/20 20:44 08/18/20 21:57 Temperature 98.3 F Pulse Rate 87 96 Blood Pressure 136/86 08/18/20 22:00 08/19/20 03:00 08/19/20 05:56 Temperature Pulse Rate 91 89 84 Blood Pressure 124/73 124/63 128/70 08/19/20 05:58 08/19/20 08:37 Temperature Pulse Rate 84 83 Blood Pressure 113/60 Intake/Output Intake/Output: Intake & Output 08/16/20 08/17/20 08/18/20 08/19/20 23:59 23:59 23:59 23:59 Intake Total 800 2120 1750 Output Total 2450 2875 1700 Balance -9641 -493 50 Meds/Results Medications: Active Medications Generic Name Dose Route Start Last Admin Trade Name Freq PRN Reason Stop Dose Admin Docusate Sodium 100 mg 08/18/20 09:00 08/19/20 08:27 Docusate Sodium 100 Mg Capsule PO 100 mg Q12HR GAYE Administration Famotidine 20 mg 08/17/20 22:48 Famotidine 20 Mg Tablet PO Q12HR PRN Reflux Labetalol HCl 400 mg 08/18/20 14:00 08/19/20 05:58 Labetalol Hcl 100 Mg Tablet PO 400 mg Q8HR GAYE Administration Nifedipine 30 mg 08/18/20 21:00 08/19/20 08:27 Nifedipine 30 Mg Tab.Er.24 PO 30 mg Q12HR GAYE Administration Polysaccharide Iron Complex 150 mg 08/17/20 08:00 08/19/20 08:27 Polysaccharide Iron Complex 150 Mg Capsule PO 150 mg DAILY@0800 [facility] Administration Labs CBC & Chem 7: 08/17/20 16:47 08/17/20 16:47
--- NOTE | 2020-08-19 08:52 | P.DS_ITS ---
DS: Admitting Diagnosis Admitting Diagnosis Admitting Diagnosis: IUP 25 weeks absolute oligohydramnios Severe IUGR CHTN r/o preeclampsia DS: Discharge Diagnosis Discharge Diagnosis (1) 25 to 26 weeks gestation of : Status: Acute (2) Chronic hypertension with superimposed preeclampsia: Code(s): O11.9 - Pre-existing hypertension with pre-eclampsia, unspecified trimester Status: Acute (3) Oligohydramnios: Code(s): O41.00X0 - Oligohydramnios, unspecified trimester, not applicable or unspecified Status: Acute (4) IUGR (intrauterine growth restriction): Status: Acute DS: Summary Hospital Course Hospital Course: Admitted for observation and management of BP. Patient ruled in for superimposed preeclampsia. BP meds adjusted. Labs remain stable and normal. No PIH symptoms throughout. +FHTs. Status at Discharge Functional status at discharge: independent ambulation Overall status at discharge: patient is back to baseline Time Spent with Patient Time attestation: Total time spent providing and/or coordinating discharge services: Time spent: Less than 30 minutes Discharge Plan Discharge Attending physician on discharge: Cherie Prather Discharging Clinician: Cherie Prather Anticipated Discharge Date/Time: 08/19/20 08:56 Patient Disposition: Home, Self-Care Activity: may shower and other - see discharge instructions Diet: regular Discharge Instructions: bedrest with bathroom privileges Patient Instructions: Antibiotic Form Stand Alone Forms: General Discharge Information Follow-up/Referrals: Cherie Prather MD [Physician] - 1 Week Discharge Medications: New nifedipine [Procardia XL] 30 mg Tablet Extended Release 24hr 30 mg PO Q12HR Qty: 60 RF: 2 polysaccharide iron complex 150 mg iron Capsule 150 mg PO DAILY@0800 Qty: 60 RF: 2 docusate sodium 100 mg Capsule 100 mg PO Q12HR Qty: 60 RF: 2 labetalol 100 mg Tablet 400 mg PO Q8HR Qty: 300 RF: 5 Continued ergocalciferol (vitamin D2) [Vitamin D2] 1,250 mcg (50,000 unit) Capsule 1,250 mcg PO WEEKLY RF: 0 Discontinued nifedipine [Procardia XL] 30 mg Tablet Extended Release 24hr 30 mg PO QAM Qty: 30 RF: 0 labetalol 100 mg Tablet 300 mg PO TID Qty: 270 RF: 0 Date of admission: 08/15/20 16:41 Primary Care Provider: PHYSICIAN,PURCHASING AND CLAIMS SUPERVISOR Admitting Provider: Cherie Prather Attending physician on admission: Cherie Prather Condition: Stable
[2020-08-19 09:00] VITALS: PULSE 83
== END 2020-08-19 10:31 | disposition home or self-care (01) ==
PROVIDERS: Admitting Provider Obstetrics & Gynecology Gynecology; Visit Provider Obstetrics & Gynecology Gynecology
DX: O11.2 Pre-existing hypertension with pre-eclampsia, second trimester (principal); O41.02X0 Oligohydramnios, second trimester, not applicable or unspecified; O36.5920 Maternal care for other known or suspected poor fetal growth, second trimester, not applicable or unspecified; Z3A.26 26 weeks gestation of pregnancy
CPT/HCPCS: 36415; 59025; 76805; 80053; 81001; 81050; 82570; 82575; 84156; 84550; 85025; 85027; 87086; A9270; G0378; G0379

== ENCOUNTER 2020-08-22 13:30 | Inpatient (IN) | payer BC, MEDICAID, SELFPAY ==
[2020-08-22] VITALS (18 sets, daily range): BP systolic 103–134; BP diastolic 44–79; PULSE 95–110; TEMP 36.6–37.1; O2SAT 100; BMI 44.9
[2020-08-22 15:15] LABS: Basophils Percent Auto 0.3 % (0.2-1.2); Eosinophils Absolute Auto 0.3 K/mm3 (0-0.3); Eosinophils Percent Auto 2.4 % (0-4.4); Hematocrit 33.1 % (37.0-47.0); Hemoglobin 11.2 g/dL (12.0-15.0); Immature Granulocyte Absolute 0.06 K/mm3 (0.00-0.031); Immature Granulocyte Percent A 0.5 % (0-0.5); Lymphocytes Absolute Auto 1.67 K/mm3 (0.9-3.2); Lymphocytes Percent Auto 14.9 % (18.3-44.2); Mean Corpuscular HGB Conc 33.8 g/dl (32-36); Mean Corpuscular Hemoglobin 28.6 pg (26-34); Mean Corpuscular Volume 84.4 fl (80-100); Mean Platelet Volume 10.4 fl (7.4-10.4); Monocytes Absolute Auto 0.4 K/mm3 (0.1-0.6); Monocytes Percent Auto 3.5 % (2.6-8.5); Neutrophils Absolute Auto 8.8 K/mm3 (1.3-6.7); Neutrophils Percent Auto 78.4 % (45.5-73.1); Platelet Count Result 189 k/mm3 (150-375); Red Blood Count 3.92 M/mm3 (4.2-5.4); Red Cell Distribution Width 15.3 % (11.5-14.5); White Blood Count 11.2 K/mm3 (4.5-10.0)
[2020-08-22 15:26] LABS: Alanine Aminotransferase 30 U/L (4-35); Albumin Level 4.1 g/dL (3.5-5.1); Alkaline Phosphatase 111 U/L (38-126); Anion Gap 10 mmol/L (8-16); Aspartate Amino Transferase 31 U/L (14-36); Bilirubin,Total 0.5 mg/dL (0.2-1.3); Blood Urea Nitrogen 10 mg/dL (7-17); Calcium 9.6 mg/dL (8.4-10.2); Carbon Dioxide 24 mmol/L (22-30); Chloride 102 mmol/L (98-107); Estimated Glomerular Filt Rate > 60; Glucose 124 mg/dL (65-105); Potassium 3.6 mmol/L (3.4-5.0); Sodium 136 mmol/L (137-145); Uric Acid 6.8 mg/dL (2.5-7.5)
[2020-08-22] MEDS: miSOPROStol 100 MCG TABLET XX ×2 (17:16→21:13)
[2020-08-22] MEDS: LACTATED RINGERS 1,000 ML 125 ML IV CONT (17:25)
--- NOTE | 2020-08-22 18:21 | WPDANESEPP ---
Anes - Eval Pre Procedure Procedure: Labor epidural Date/Time: 08/22/20 18:21 Surgeon: Cherie Prather M.D. Preop Diagnosis: pain during labor, demise Pre Op Diagnosis: iufd Patient Data Age: 20 Gender: F Height: 1.55 m Weight: 108 kg Last Vital Signs Pulse 101 H 08/22/20 18:01 BP 110/44 L 08/22/20 18:01 Pulse Ox 100 08/22/20 15:29 Allergies Allergy/AdvReac Type Severity Reaction Status Date / Time No Known Allergies Allergy Verified 07/08/20 11:23 Home Medications Medication Instructions Recorded Confirmed Type ergocalciferol (vitamin D2) 1,250 mcg PO WEEKLY 08/09/20 08/16/20 History [Vitamin D2] docusate sodium 100 mg PO Q12HR #60 cap 08/19/20 Rx labetalol 400 mg PO Q8HR #300 tablet 08/19/20 Rx nifedipine [Procardia XL] 30 mg PO Q12HR #60 tablet 08/19/20 Rx polysaccharide iron complex 150 mg PO DAILY@0800 #60 cap 08/19/20 Rx Laboratory Tests 08/22/20 08/22/20 08/22/20 14:59 14:59 14:59 WBC 11.2 K/mm3 H K/mm3 (4.5-10.0) RBC 3.92 M/mm3 L M/mm3 (4.2-5.4) Hgb 11.2 g/dL L g/dL (12.0-15.0) Hct 33.1 % L % (37.0-47.0) MCV 84.4 fl fl (80-100) MCH 28.6 pg pg (26-34) MCHC 33.8 g/dl g/dl (32-36) RDW 15.3 % H % (11.5-14.5) Plt Count 189 k/mm3 k/mm3 (150-375) MPV 10.4 fl fl (7.4-10.4) Immature Gran % (Auto) 0.5 % % (0-0.5) Neut % (Auto) 78.4 % H % (45.5-73.1) Lymph % (Auto) 14.9 % L % (18.3-44.2) [place] % (Auto) 3.5 % % (2.6-8.5) Eos % (Auto) 2.4 % % (0-4.4) Baso % (Auto) 0.3 % % (0.2-1.2) Lymph # (Auto) 1.67 K/mm3 K/mm3 (0.9-3.2) [place] # (Auto) 0.4 K/mm3 K/mm3 (0.1-0.6) Eos # (Auto) 0.3 K/mm3 K/mm3 (0-0.3) Baso # (Auto) 0.0 K/mm3 K/mm3 (0.0-0.1) Abs Immat Gran (auto) 0.06 K/mm3 H K/mm3 (0.00-0.031) Absolute Neuts (auto) 8.8 K/mm3 H K/mm3 (1.3-6.7) Absolute Nucleated RBC 0.0 K/mm3 K/mm3 (0.0-0.012) Nucleated RBC % 0.0 % % (0.0-0.2) Sodium Potassium Chloride Carbon Dioxide Anion Gap BUN Creatinine Estim Creat Clear Calc Estimated GFR Glucose Uric Acid Calcium Total Bilirubin AST ALT Alkaline Phosphatase Total Protein Albumin RPR Pending Blood Type O Positive Antibody Screen Negative 08/22/20 14:59 WBC RBC Hgb Hct MCV MCH MCHC RDW Plt Count MPV Immature Gran % (Auto) Neut % (Auto) Lymph % (Auto) [place] % (Auto) Eos % (Auto) Baso % (Auto) Lymph # (Auto) [place] # (Auto) Eos # (Auto) Baso # (Auto) Abs Immat Gran (auto) Absolute Neuts (auto) Absolute Nucleated RBC Nucleated RBC % Sodium 136 mmol/L L mmol/L (137-145) Potassium 3.6 mmol/L mmol/L (3.4-5.0) Chloride 102 mmol/L mmol/L (98-107) Carbon Dioxide 24 mmol/L mmol/L (22-30) Anion Gap 10 mmol/L mmol/L (8-16) BUN 10 mg/dL mg/dL (7-17) Creatinine 0.50 mg/dL L mg/dL (0.7-1.0) Estim Creat Clear Calc Not Reportable Estimated GFR > 60 (59 - ) Glucose 124 mg/dL H mg/dL (65-105) Uric Acid 6.8 mg/dL mg/dL (2.5-7.5) Calcium 9.6 mg/dL mg/dL (8.4-10.2) Total Bilirubin 0.5 mg/dL mg/dL (0.2-1.3) AST 31 U/L U/L (14-36) ALT 30 U/L U/L (4-35) Alkaline Phosphatase 111 U/L U/L (38-126) Total Protein 8.0 g/dL g/dL (6.3-8.2) Albumin 4.1 g/dL g/dL (3.5-5.1) RPR Blood Type Antibody Screen Patient hx anesthesia problems: none Family hx an
--- NOTE | 2020-08-22 21:00 | PC.NURSE ---
2100- Dr. Prather called in for update- update given. will continue with plan of care.
[2020-08-23] VITALS (8 sets, daily range): BP systolic 120–151; BP diastolic 44–85; PULSE 89–99; TEMP 36.6–36.8
[2020-08-23] MEDS: miSOPROStol 100 MCG TABLET XX ×3 (01:14→06:20)
[2020-08-23] MEDS: miSOPROStol 200 MCG TABLET XX (08:56)
[2020-08-23 09:23] LABS: Rapid Plasma Reagin Non-Reactive (NonReactive)
[2020-08-23] MEDS: fentaNYL CITRATE INJ (*CRX) 100 MCG/2 ML VIAL IV PUSH ×2 (09:47→11:33)
[2020-08-23] MEDS: OXYTOCIN 30 UNITS/NS 500 ML 30 UNITS/500 ML BAG 6 UNITS IV CONT (11:50)
[2020-08-23] MEDS: OXYTOCIN 30 UNITS/NS 500 ML 30 UNITS/500 ML BAG 125 UNITS IV CONT (13:36)
--- NOTE | 2020-08-23 14:19 | LDADM ---
This patient, Meme Griffin, was admitted to Labor/Delivery/Recovery 110 on 08/22/20 at 13:30. Plans for induction, pain management and delivery were discussed with patient. Patient/family oriented to hospital policies and general routines including ID bracelet, bed and alarms, visiting hours, pain management, procedures, bathroom and other care routines, personal items, smoking policy, room service/diet and guest tray routines, infant security routines, call light, and visiting hours. Patient/Family are encouraged to report perceived risks to care and to ask questions if they do not understand what they are told or what they should do. See OBIX for further documentation.
[2020-08-23 16:18] LABS: Glucose 146 mg/dL (65-105)
[2020-08-23 16:59] LABS: HIV 1/2 Ab P24 Ag Result Negative (Negative)
[2020-08-23 17:22] LABS: Free T4 Free Thyroxine 1.02 ng/mL (0.78-2.19)
[2020-08-24 02:08] VITALS: BP 154/88; PULSE 90
[2020-08-24 06:34] VITALS: BP 142/88; PULSE 83
[2020-08-24 06:54] VITALS: BP 123/69; PULSE 84
[2020-08-24 09:33] VITALS: TEMP 36.2
--- NOTE | 2020-08-24 10:04 | PM.OBPNVD ---
OB - PN: Subj Subjective Date/time seen: 08/24/20 10:04 S: doing well no complaints. desires home today minimal bleeding OB - PN: Obj Data Labs CBC & Chem 7: 08/22/20 14:59 08/23/20 15:52 Labs: Laboratory Results - last 24 hr 08/23/20 08/23/20 08/23/20 15:52 15:52 15:52 Glucose 146 H TSH 1.560 Free T4 1.02 HIV 1&2 Ab/P24 Ag 4thGn Negative Antibody Screen KB Hemoglobin 08/23/20 15:52 Glucose TSH Free T4 HIV 1&2 Ab/P24 Ag 4thGn Antibody Screen Negative KB Hemoglobin Positive OB - PN A/P Assessment and Plan (1) demise: Status: Acute Assessment and Plan: d/c home follow up in 1 week for bp check. (2) Gestational hypertension: Qualifiers: Trimester: second trimester Qualified Code(s): O13.2 - Gestational [-induced] hypertension without significant proteinuria, second trimester Code(s): O13.9 - Gestational [-induced] hypertension without significant proteinuria, unspecified trimester Status: Acute Time Spent With Patient Time: Total time spent is greater than 50% in coordination of care (as documented) at patient's floor/unit and/or counseling patient: Exam Const: General: cooperative GI: Other: soft nontender
--- NOTE | 2020-08-24 10:15 | PC.NURSE ---
here to discharge patient.
--- NOTE | 2020-08-26 08:28 | WPDOBADMIT ---
Obstetrics - Admit Note Admission Note: Admitted 08/22 for MIL for demise at 25 weeks. record reviewed. No pertinent additions to the history and/or any subsequent changes in the physical findings that are not consistent with the expected course of the were found. Additions to the history and/or subsequent changes in the physical findings follow. None.
--- NOTE | 2020-08-26 08:28 | PM.OBPRVD ---
OB - Delivery Note Procedure Delivery date: 08/23/20 Procedure: events: Pre-Eclampsia (25 weeks with demise) and Labor Induction Intrapartal events: None Induction method: per misoprostol protocol Delivery augmentation: pitocin Delivery monitor: external uterine Route of delivery: Laceration Description: None Specimen: Yes (placenta; for gross) Estimated blood loss (mL): 50 Anesthesia type: None Disposition: floor [place] [facility] Date of : 08/23/20 Weeks of gestation at delivery: 25 gender: Ambiguous (suspect female) presentation: breech Placenta delivery description: Spontaneous score one minute: 0 score five minutes: 0 Narrative: The infant delivered to neck with maternal pushing but head still above cervix. Pitocin started and within 15 minutes, fully delivered. Placenta spontaneously detached and also delivered immediately
[2020-08-26 09:57] LABS: Rapid Plasma Reagin Non-Reactive (NonReactive)
[2020-08-26 13:56] LABS: CMV IgG Antibody <0.60 U/mL (<0.60)
[2020-08-27 09:56] LABS: CMV IgM Antibody <30.00 AU/mL (<30.00)
[2020-08-28 02:46] LABS: Anti Cardio Antibody IgM 16 MPL (<=12); Anti Cardiolipin Antibody IgA <11 APL (<=11); Anti Cardiolipin Antibody IgG <14 GPL (<=14)
[2020-08-28 20:25] LABS: Lupus dRVVT 1:1 Mix Interpreta Not Indicated; Lupus dRVVT Screen 36 sec (<=45); PTT-LA Screen 27 sec (<=40)
--- NOTE | 2020-08-30 13:59 | PM.OBDSVD ---
DS: Admitting Diagnosis Admitting Diagnosis Admitting Diagnosis: IUFD at 25 weeks preeclampsia DS: Discharge Diagnosis Discharge Diagnosis (1) IUFD (intrauterine ): Status: Acute (2) 25 to 26 weeks gestation of : Status: Acute (3) Chronic hypertension with superimposed preeclampsia: Code(s): O11.9 - Pre-existing hypertension with pre-eclampsia, unspecified trimester Status: Acute OB - DS: Summary OB Procedures : NST, PIH Mgmt and Ultrasound OB Procedures Intrapartum: Spontaneous Vag Delivery (breech) OB Procedures: : None Peripartum Data Delivery Method: Natural Vaginal Laceration Description: None complications: none Status at Discharge Functional status at discharge: independent ambulation Overall status at discharge: patient is progressing back to baseline Time Spent with Patient Time attestation: Total time spent providing and/or coordinating discharge services: Time spent: Less than 30 minutes DS: Data Data Completed and Pending Completed studies during hospitalization: Pending at discharge 08/23/20 12:02 Surgical [PTH] Routine Discharge Plan Discharge Attending physician on discharge: Cherie Prather Discharging Clinician: Tucker Cintron Patient Disposition: Home, Self-Care Activity: may shower Diet: regular Discharge Instructions: Follow-Up: Call your Provider's office for an appointment to be seen in: 1 Week Return to [facility] for a follow-up visit: Appointment Date/Time: at What to expect at your follow-up visit: Blood Pressure Check Physical Assessment Call [phone] if you are unable to keep your appointment time. EPISIOTOMY/PERINEAL CARE: * Until bleeding stops, use your stacy bottle after urinating * Change your pad frequently throughout the day * You may take sitz baths several times a day (fill your bathtub with warm water and soak for 20 minutes.) Do NOT bathe in the water * No tub baths until seen by your physician - You may shower BLEEDING: * Each individual will experience vaginal bleeding, but it will vary with each situation and individual woman. * Vaginal bleeding will go thru cycles-from bright red, to pinkish to a white, creamy discharge. This is considered normal. You may also experience a brownish discharge which is also normal. DIET AND NUTRITION: * Eat at least 3 regular, well-balanced meals per day: include all 4 food groups daily. * You may prefer 6 small meals. * Drink 6-8 glasses of water or non-caffeinated beverages per day. * Loss of appetite is common with loss. We encourage you to try to eat; this will help with both your physical and emotional health. ACTIVITY: * Rest as much as possible during the day. * Do not exercise or lift anything heavier than 10 pounds (such as laundry or other children.) * Avoid stairs or driving as much as possible, especially if you are taking pain medication. * Do not put anything into the vagina. No douching, tampons, or sexual activity until seen and released by your physician. * Listen to your body, and do not do what is uncomfortable or painful. EMOTIONAL HEALTH: * This is a very difficult and sad time for you and your family, friends, and other children. It may be helpful to refer to the booklets on loss that you received. * It is okay to be sad and to cry. Denial, anger, and guilt are also normal stages that you and your family may go thru during this time. Each person reaches these stages at their own pace. * Keep the lines of communication open between family and friends, and ask for help if needed. NOTIFY PHYSICIAN IF YOU HAVE ANY QUESTIONS OR IF ANY OF THE FOLLOWING SYMPTOMS OCCUR: * If your episiotomy or incision becomes red, swollen, or more painful than what you have experienced in the hospital. * If your vaginal bleeding becomes foul smelling. * If your vaginal
== END 2020-08-24 11:11 | disposition home or self-care (01) | DRG 806 ==
LOC: ANHLDR 13:46 → ANHOBPP 08-24 10:03 → ANHLDR 08-27 10:58 → ANHOBPP 08-27 10:58
PROVIDERS: Admitting Provider Obstetrics & Gynecology Gynecology; Visit Provider Obstetrics & Gynecology
DX: O60.12X0 Preterm labor second trimester with preterm delivery second trimester, not applicable or unspecified (principal); O36.4XX0 Maternal care for intrauterine death, not applicable or unspecified; Z37.1 Single stillbirth; O14.92 Unspecified pre-eclampsia, second trimester; Z3A.26 26 weeks gestation of pregnancy; O32.1XX0 Maternal care for breech presentation, not applicable or unspecified; O13.2 Gestational [pregnancy-induced] hypertension without significant proteinuria, second trimester
CPT/HCPCS: 36415; 80053; 82947; 84439; 84443; 84550; 85025; 85460; 85613; 85730; 86146; 86147; 86592; 86644; 86645; 86703; 86850; 86900; 86901; 88307; A9270; G0432; J2590; J3010; J7120

== ENCOUNTER 2020-08-30 08:52 | Outpatient (CLI) | payer BC, MEDICAID, SELFPAY ==
[2020-08-30] VITALS (10 sets, daily range): BP systolic 132–158; BP diastolic 67–104; PULSE 77–92
[2020-08-30 09:48] LABS: Basophils Absolute Auto 0.1 K/mm3 (0.0-0.1); Basophils Percent Auto 0.8 % (0.2-1.2); Eosinophils Absolute Auto 0.5 K/mm3 (0-0.3); Eosinophils Percent Auto 5.6 % (0-4.4); Hematocrit 30.4 % (37.0-47.0); Hemoglobin 10.3 g/dL (12.0-15.0); Immature Granulocyte Absolute 0.08 K/mm3 (0.00-0.031); Immature Granulocyte Percent A 0.9 % (0-0.5); Lymphocytes Absolute Auto 2.29 K/mm3 (0.9-3.2); Lymphocytes Percent Auto 25.6 % (18.3-44.2); Mean Corpuscular HGB Conc 33.9 g/dl (32-36); Mean Corpuscular Hemoglobin 28.8 pg (26-34); Mean Corpuscular Volume 84.9 fl (80-100); Mean Platelet Volume 9.7 fl (7.4-10.4); Monocytes Absolute Auto 0.3 K/mm3 (0.1-0.6); Monocytes Percent Auto 3.5 % (2.6-8.5); Neutrophils Absolute Auto 5.7 K/mm3 (1.3-6.7); Neutrophils Percent Auto 63.6 % (45.5-73.1); Platelet Count Result 277 k/mm3 (150-375); Red Blood Count 3.58 M/mm3 (4.2-5.4); Red Cell Distribution Width 14.9 % (11.5-14.5); White Blood Count 8.9 K/mm3 (4.5-10.0)
[2020-08-30 09:59] LABS: Alanine Aminotransferase 16 U/L (4-35); Albumin Level 3.7 g/dL (3.5-5.1); Alkaline Phosphatase 95 U/L (38-126); Anion Gap 8 mmol/L (8-16); Aspartate Amino Transferase 19 U/L (14-36); Bilirubin,Total 0.3 mg/dL (0.2-1.3); Blood Urea Nitrogen 11 mg/dL (7-17); Calcium 8.9 mg/dL (8.4-10.2); Carbon Dioxide 26 mmol/L (22-30); Chloride 104 mmol/L (98-107); Estimated Glomerular Filt Rate > 60; Glucose 107 mg/dL (65-105); Potassium 4.1 mmol/L (3.4-5.0); Sodium 138 mmol/L (137-145); Uric Acid 7.9 mg/dL (2.5-7.5)
--- NOTE | 2020-08-30 10:00 | PC.NURSE ---
called Dr. murray and reported BP and PIH lab result. order received to observe 2 more hours and report BPs.
--- NOTE | 2020-08-30 12:05 | PC.NURSE ---
Dr. Prather called for update on BPs. BP update given. discharge order received with monitoring BP at home TID.
== END 2020-08-30 12:10 ==
LOC: ANHOBOP 08:57 → ANHOBPP 08:57
PROVIDERS: Visit Provider Obstetrics & Gynecology Gynecology
DX: O13.9 Gestational [pregnancy-induced] hypertension without significant proteinuria, unspecified trimester (principal); Z3A.00 Weeks of gestation of pregnancy not specified
CPT/HCPCS: 36415; 80053; 84550; 85025; 99199

== ENCOUNTER 2021-07-18 16:45 | Emergency (ER) | payer BC, MEDICAID, SELFPAY ==
[2021-07-18 16:51] VITALS: BP 153/120; PULSE 126; RESP 16; TEMP 35.5; O2SAT 100
--- NOTE | 2021-07-18 17:15 | ED.NAVMDI ---
HPI - Nausea/Vomiting/Diarrhea General Chief complaint: Nausea/Vomiting/Diarrhea Stated complaint: VOMITING/DIARRHEA Source: patient Mode of arrival: ambulatory Limitations: no limitations History of Present Illness HPI Narrative: Patient is a 21-year-old female who presents complaining of nausea, vomiting and diarrhea x1 day. Patient reports 7-8 episodes of vomiting and 6+ episodes of diarrhea starting yesterday. She denies fever, chills or body aches. She reports Covid vaccinated x2 as she works in independent living area of correction community. She denies all other complaints at this time. Patient reports a history of hypertension but has not been taking medication for a while and she has been PCP. MD elicited complaint: nausea, vomiting and diarrhea Related Data Allergies Allergy/AdvReac Type Severity Reaction Status Date / Time No Known Allergies Allergy Verified 07/18/21 16:54 Review of Systems Review of Systems: CONSTITUTIONAL: Denies fever, chills, or sweats. EYES: Denies visual changes, redness, or discharge. ENT: Denies rhinorrhea, congestion, sore throat, or otalgia. CARDIOVASCULAR: Denies chest pain, palpitations, or edema. RESPIRATORY: Denies cough or dyspnea. GASTROINTESTINAL: Reports abdominal pain, nausea, vomiting, and diarrhea. GENITOURINARY: Denies dysuria or hematuria. SKIN: Denies rash or itching. MUSCULOSKELETAL: Denies back pain, joint pain, or myalgia. NEUROLOGIC: Denies headache, numbness, dizziness, or weakness. PSYCHIATRIC: Denies anxiety or depression. PMFSH Family History Family History Grandparent Hypertension Cerebrovascular accident Family history of type 2 diabetes mellitus Social History Social History Smoking status: Never smoker Alcohol intake: never Substance use: never Gender identity (if verbalized by the patient): Female Spiritual care concerns: No Comments At the time of signature, I have reviewed and agree with nursing past medical, surgical, social, and family history unless otherwise noted. Please see nursing chart for further information. There is no relevant family history pertinent to the presenting complaint. Exam Narrative: GENERAL: Well-appearing, well-nourished, and in no acute distress. HEAD: Normocephalic, atraumatic. EYES: EOMI. No redness or drainage. Conjunctiva are normal. ENT: Mucous membranes pink and moist. CHEST: No respiratory distress. HEART: Regular rate and rhythm. GI: Soft, mild tenderness with palpation, no rebound tenderness or guarding. No distention. Bowel sounds normal in all quadrants. MUSCULOSKELETAL: No bony tenderness. EXTREMITIES: Normal range of motion. No edema. SKIN: Warm, dry, no rash. NEURO: No focal deficits. Alert and oriented x3. Gait steady. PSYCH: Normal affect. No signs of depression or anxiety. Course Vital Signs Vital signs: Vital Signs Temperature 35.5 C L 07/18/21 16:51 Pulse Rate 126 H 07/18/21 16:51 Respiratory Rate 16 07/18/21 16:51 Blood Pressure 153/120 H 07/18/21 16:51 Pulse Oximetry 100 07/18/21 16:51 Temperature 35.5 C L 07/18/21 16:51 Pulse Rate 126 H 07/18/21 16:51 Respiratory Rate 16 07/18/21 16:51 Blood Pressure 153/120 H 07/18/21 16:51 Pulse Oximetry 100 07/18/21 16:51 Reviewed-patient is informed that they may have pre-hypertension or hypertension based on a blood pressure reading. I recommend the patient call the primary care provider listed on their discharge instructions or a physician of their choice this week to arrange follow-up for further evaluation of possible pre-hypertension or hypertension. MDM - Nausea/Vomiting/Diarrhea MDM Narrative Medical decision making narrative: Patient reports that she feels much better after IV fluids and Zofran. Patient denies abdominal pain at this time. Discussed with patient that she is hyperten
[2021-07-18] MEDS: FAMOTIDINE 20 MG TABLET PO (17:28)
[2021-07-18] MEDS: ONDANSETRON INJ 4 MG/2 ML VIAL IV PUSH (17:28)
--- NOTE | 2021-07-18 18:32 | PC.NURSE ---
pt resting comfortably in bed with Grandmother at bedside. IVF infusing without complication. Pt states she is feeling better but remains tachycardic. Provider aware.
[2021-07-18 18:44] VITALS: BP 152/121; PULSE 118; RESP 16; TEMP 36.4; O2SAT 99
[2021-07-23] MEDS: KETOROLAC 30 MG/ML VIAL (*BKC) IV PUSH (10:40)
== END 2021-07-18 18:58 | disposition home or self-care (01) ==
PROVIDERS: Emergency Provider Nurse Practitioner
DX: R11.2 Nausea with vomiting, unspecified (principal); E86.0 Dehydration
CPT/HCPCS: 81003; 96360; 96374; 96375; 99214; A9270; G0463; J1885; J2405

== ENCOUNTER 2021-07-20 15:22 | Inpatient (IN) | payer BC, MEDICAID, SELFPAY ==
[2021-07-20] VITALS (21 sets, daily range): BP systolic 136–166; BP diastolic 102–132; PULSE 88–132; RESP 16–34; TEMP 36.1–36.8; O2SAT 96–100; BMI 43.2
--- NOTE | ~2021-07-20 | XR_ITS ---
EXAMINATION: XR chest 1V portable EXAM DATE: 07/22/2021 12:12 INDICATION: Left sided chest pressure with laying on left. TECHNIQUE: Portable AP frontal chest x-ray was obtained. Comparison is made to prior examination from 07/20/2021, and correlation with CT pulmonary scan same also 07/20. FINDINGS: There is cardiomegaly unchanged. No confluent consolidation, pneumothorax or pleural effusi on suspected. There are no osseous abnormalities identified. IMPRESSION: Cardiomegaly. Reviewed, dictated and finalized at location A. IMPRESSION: Cardiomegaly.
--- NOTE | ~2021-07-20 | XR_ITS ---
EXAMINATION: XR chest 2V DATE: 07/20/2021 16:06 INDICATION: Hypertension, weakness and emesis. TECHNIQUE: PA and lateral views of the chest were obtained. COMPARISON: None FINDINGS: The lungs are clear with no focal airspace opacities, pulmonary edema, pleural effusion or pneumothor ax. Cardiomegaly. Mild thoracic spondylosis. IMPRESSION: 1. Cardiomegaly. Reviewed, dictated and finalized at location A. IMPRESSION: 1. Cardiomegaly.
--- NOTE | ~2021-07-20 | CT_ITS ---
EXAMINATION: CTA chest PE protocol DATE: 07/20/2021 18:21 INDICATION: Chest pain and shortness of breath TECHNIQUE: Computed tomography (CT) pulmonary angiogram of the chest was performed with 100 mL Omnipa que-350 intravenous contrast. Additional 3D reconstructions utilizing coronal maximum intensity proje ction (MIP) were performed. Automated exposure control and iterative reconstruction technique were em ployed. The dose-length product was 825.50 mGy-cm. COMPARISON: None FINDINGS: Excellent contrast opacification of the pulmonary arteries. There is mild streak artifact from dense contrast in the superior vena cava and right atrium. Minimal scattered respiratory motion artifact wh ich does not significantly limit evaluation. No pulmonary embolism. Smooth septal line thickening and mosaic attenuation with subtle groundglass opacities with lower lung predominance consistent with mi ld pulmonary edema. No pneumonia, pleural effusion or pneumothorax. Cardiomegaly with pulmonary vascu lar congestion. There is reflux of contrast into the inferior vena cava and hepatic veins consistent with tricuspid regurgitation. No pericardial effusion. Thoracic aorta is normal in caliber. Mild like ly reactive mediastinal and bilateral hilar lymphadenopathy. There are some residual thymic tissue in the anterior mediastinum. Multiple small Schmorl's nodes throughout the lower thoracic spine. IMPRESSION: 1. No pulmonary embolism. 2. Congestive heart failure with mild cardiomegaly, pulmonary vascular congestion mild pulmonary dino a and tricuspid regurgitation. Reviewed, dictated and finalized at location A. IMPRESSION: 1. No pulmonary embolism. 2. Congestive heart failure with mild cardiomegaly, pulmonary vascular congesti on mild pulmonary edema and tricuspid regurgitation.
--- NOTE | 2021-07-20 15:37 | ECG_ITS ---
Measurements Intervals Leon Rate: 119 P: 43 NE: 150 QRS: 20 QRSD: 94 T: 47 QT: 418 QTc: 590 Interpretive Statements SINUS TACHYCARDIA DELAYED PRECORDIAL R/S TRANSITION NONSPECIFIC ST & T-WAVE ABNORMALITY- INF/HIGH LAT LEADS ABNORMAL ECG Electronically Signed On 07-20-2021 19:26:09 CDT by Dashawn Mar D.O.
[2021-07-20 15:50] LABS: Basophils Absolute Auto 0.1 K/mm3 (0.0-0.1); Basophils Percent Auto 0.6 % (0.2-1.2); Eosinophils Absolute Auto 0.1 K/mm3 (0-0.3); Eosinophils Percent Auto 0.7 % (0-4.4); Hematocrit 35.4 % (37.0-47.0); Hemoglobin 10.9 g/dL (12.0-15.0); Immature Granulocyte Absolute 0.05 K/mm3 (0.00-0.031); Immature Granulocyte Percent A 0.4 % (0-0.5); Lymphocytes Absolute Auto 3.11 K/mm3 (0.9-3.2); Lymphocytes Percent Auto 23.3 % (18.3-44.2); Mean Corpuscular HGB Conc 30.8 g/dl (32-36); Mean Corpuscular Hemoglobin 25.3 pg (26-34); Mean Corpuscular Volume 82.1 fl (80-100); Mean Platelet Volume 10.4 fl (7.4-10.4); Monocytes Absolute Auto 0.5 K/mm3 (0.1-0.6); Monocytes Percent Auto 3.5 % (2.6-8.5); Neutrophils Absolute Auto 9.6 K/mm3 (1.3-6.7); Neutrophils Percent Auto 71.5 % (45.5-73.1); Platelet Count Result 421 k/mm3 (150-375); Red Blood Count 4.31 M/mm3 (4.2-5.4); Red Cell Distribution Width 15.6 % (11.5-14.5); White Blood Count 13.4 K/mm3 (4.5-10.0)
[2021-07-20 15:58] LABS: INR 1.2; Prothrombin Time 15.3 Seconds (11.1-14.7)
[2021-07-20 15:59] LABS: Partial Thromboplastin Time 23.7 SECONDS (22.3-36.8)
[2021-07-20 16:03] LABS: Anion Gap 14 mmol/L (8-16); Blood Urea Nitrogen 17 mg/dL (7-17); Carbon Dioxide 21 mmol/L (22-30); Chloride 103 mmol/L (98-107); Estimated CRCL calculation 95 ml/min; Estimated Glomerular Filt Rate > 60; Glucose 129 mg/dL (65-110); Sodium 138 mmol/L (137-145)
[2021-07-20 16:17] LABS: Troponin I 0.246 ng/mL (0.000-0.034)
--- NOTE | 2021-07-20 17:39 | ED.CHESTPAIN ---
HPI - Chest Pain General Chief Complaint: Recheck/Abnormal Lab/Rx Stated Complaint: htn/weak/vomiting Time Seen by Provider: 07/20/21 16:56 Source: patient Mode of arrival: ambulatory Limitations: no limitations History of Present Illness HPI narrative: Patient is a 21-year-old female complaining of chest pain, intermittent, midsternal, tightness, 6 out of 10, currently denies any pain accompanied by nausea that started 3 to 4 days ago. Patient denies shortness of breath, abdominal pain, nausea, vomiting, diaphoresis, fever or chills. Related Data Allergies Allergy/AdvReac Type Severity Reaction Status Date / Time No Known Allergies Allergy Verified 07/20/21 17:11 Review of Systems Review of Systems: All systems reviewed & are unremarkable except as noted in HPI and below Constitutional: Constitutional: Denies body ache(s), Denies chills, Denies excessive sweating, Denies fatigue, Denies fever(s), Denies headache(s), Denies lethargy, Denies malaise, Denies weakness and Denies weight loss Eyes: Eyes: Denies blurry vision, Denies change in vision and Denies loss of vision ENT: Denies dizziness, Denies ear discharge, Denies headache(s), Denies lip swelling, Denies epistaxis, Denies nasal congestion, Denies neck pain, Denies throat swelling and Denies tongue swelling Cardiovascular: Cardiovascular: Denies diaphoresis, Denies rapid heart rate, Denies edema, Denies irregular heart rhythm, Denies lightheadedness, Denies palpitations, Denies dyspnea and Denies dyspnea on exertion Respiratory: Respiratory: Denies chest congestion, Denies cough, Denies hemoptysis, Denies dyspnea and Denies dyspnea on exertion Gastrointestinal: Gastrointestinal: Denies abdominal pain, Denies melena, Denies hematochezia, Denies diarrhea, Denies vomiting and Denies hematemesis Musculoskeletal: Musculoskeletal: Denies abnormal gait, Denies deformity, Denies joint swelling, Denies limited range of motion, Denies neck pain and Denies numbness Neurologic: Denies Abnormal speech present, Denies abnormal gait, Denies confusion, Denies dizziness, Denies headache(s), Denies focal weakness, Denies loss of vision, Denies numbness, Denies Other visual disturbances, Denies Sensory deficit (Neuro) and Denies weakness Psychiatric: Psychiatric: Denies confusion, Denies depression, Denies auditory hallucinations, Denies homicidal ideation and Denies suicidal ideation Endocrine: Endocrine: Denies cold intolerance, Denies excessive sweating, Denies fatigue, Denies heat intolerance and Denies palpitations Hematologic/Lymphatic: Hematologic/Lymphatic: Denies easy bleeding and Denies easy bruising Allergic/Immunologic: Allergic/Immunologic: Denies lip swelling, Denies throat swelling and Denies tongue swelling PMFSH Family History Family History Grandparent Hypertension Cerebrovascular accident Family history of type 2 diabetes mellitus Social History Social History Smoking status: Never smoker Alcohol intake: never Substance use: never Gender identity (if verbalized by the patient): Female Spiritual care concerns: No Comments Past medical history: -induced hypertension, preeclampsia Family history: Hypertension Social history: Non-smoker no EtOH or drug use Exam Const: General: cooperative, healthy appearing, comfortable, no acute distress, well developed, alert and awake; No confusion Orientation/consciousness: oriented to person, oriented to place, oriented to time, patient oriented x3 and No confusion Limitations: no limitations HENMT: Head: normal to inspection, normocephalic and atraumatic Ears: hearing grossly normal bilaterally, TM normal on the right and TM normal on the left General nose exam: Normal external nose present, Normal nares present and No nasal discharge present Face and sinus: normal facial exam Mouth: Yes Normal o
[2021-07-20 19:21] LABS: D Dimer 4.26 ug/mL (<0.48)
[2021-07-20 19:29] LABS: Troponin I 0.236 ng/mL (0.000-0.034)
[2021-07-20] MEDS: ASPIRIN 81 MG CHEWABLE TABLET 324 MG PO (19:32)
[2021-07-20] MEDS: LABETALOL HCL INJ 100 MG/20 ML VIAL 20 MG IV PUSH (19:32)
[2021-07-20] MEDS: FUROSEMIDE INJ 40 MG/4 ML VIAL IV PUSH (19:33)
[2021-07-20 20:10] LABS: NT Pro B Type Natriuretic Pept 4080 pg/mL (5-100)
[2021-07-20 22:09] LABS: Troponin I 0.238 ng/mL (0.000-0.034)
--- NOTE | 2021-07-20 23:31 | PM.IMHP ---
H&P: HPI History of Present Illness Date/Time: 07/20/21 23:31 Chief Complaint: not feeling well Narrative: Patient is a 21-year-old female who prsents to the [facility] on wednesday with nausea, vomting, mild cough. she was treatedw tih ivf and nuase medication and sent home. she went to work on wednesday, but was feeling still not so well and hence came back. On wednesday, she continued to feel worse with nausea and cough and had some chest discofmort. some shortness of breath, hence came to the ED for evaluation. She denies any fever, chills. she reprots she was sweaty a bit. no abdominal pain or diarrhea reported. she is vaccinated for covid and no sick contacts reported. Review of Systems Review of Systems: - CONSTITUTIONAL: Denies weight loss, fever and chills. - HEENT: Denies changes in vision and hearing - RESPIRATORY: reports SOB and cough. - CV: Denies palpitations and reprots some CP. - GI: Denies abdominal pain, reports nausea, vomiting and denies diarrhea. - : Denies dysuria and urinary frequency. - MSK: Denies myalgia and joint pain. - SKIN: Denies rash and pruritus. - NEUROLOGICAL: Denies headache and syncope. - PSYCHIATRIC: Denies recent changes in mood. Denies anxiety and depression. All systems reviewed & are unremarkable except as noted in HPI and below Constitutional: Constitutional: Reports fatigue and Reports weakness Neurologic: Reports weakness Endocrine: Endocrine: Reports fatigue [facility] Family History Family History Grandparent Hypertension Cerebrovascular accident Family history of type 2 diabetes mellitus Social History Social History Smoking status: Never smoker Alcohol intake: never Substance use: never Gender identity (if verbalized by the patient): Female Spiritual care concerns: No Meds Home Medications and Allergies Home Medications Medication Instructions Recorded Confirmed Type ondansetron 4 mg PO Q6H PRN #14 tablet 07/18/21 07/20/21 Rx Allergies Allergy/AdvReac Type Severity Reaction Status Date / Time No Known Allergies Allergy Verified 07/20/21 17:11 Vital Signs Vital Signs - 24 hr 07/20/21 15:33 07/20/21 17:00 07/20/21 17:06 Temperature 97.0 F L Pulse Rate 122 H 132 H 121 H Respiratory Rate 16 19 23 H Blood Pressure 150/113 H 157/119 H 152/104 H Pulse Oximetry 100 100 100 07/20/21 17:15 07/20/21 17:17 07/20/21 17:30 Temperature Pulse Rate 117 H 116 H Respiratory Rate 34 H 30 H Blood Pressure 152/120 H Pulse Oximetry 100 100 100 07/20/21 17:32 07/20/21 17:53 07/20/21 18:00 Temperature Pulse Rate Respiratory Rate Blood Pressure 145/132 H Pulse Oximetry 100 99 100 07/20/21 18:02 07/20/21 18:22 07/20/21 18:24 Temperature Pulse Rate Respiratory Rate Blood Pressure 166/125 H 157/121 H Pulse Oximetry 99 99 99 07/20/21 18:47 07/20/21 19:00 07/20/21 19:15 Temperature Pulse Rate 112 H Respiratory Rate 18 Blood Pressure 147/102 H Pulse Oximetry 98 99 99 07/20/21 19:28 07/20/21 19:30 07/20/21 20:33 Temperature Pulse Rate 117 H 117 H 93 Respiratory Rate 30 H 28 H 24 H Blood Pressure 155/124 H 136/104 H Pulse Oximetry 96 98 100 07/20/21 21:15 07/20/21 22:00 Temperature 98.2 F Pulse Rate 88 90 Respiratory Rate 24 H Blood Pressure 137/105 H Pulse Oximetry 97 Exam Narrative: GENERAL: The patient is well developed, not in acute distress HEENT: Nonicteric sclerae, PERRLA, EOMI. Oropharynx clear. Moist mucous membranes. Conjunctivae appear well perfused. CHEST: Chest wall is nontender. HEART: Regular rate and rhythm without murmur, rubs, or gallops LUNGS: Clear to auscultation bilaterally. no respiratory distress ABDOMEN: Soft, positive bowel sounds, non-tender, no organomegaly. SKIN: No rash, no excessive bruising, petechiae, or p
--- NOTE | 2021-07-20 23:50 | ADMGEN ---
This patient, Meme Griffin, was admitted to [facility] Patient/family oriented to hospital policies and general routines including ID bracelet, bed and alarms, visiting hours, pain management, procedures, bathroom and other care routines, personal items, smoking policy, room service/diet, and visiting hours. Information on how to activate the Rapid Response Team has been discussed. Patient/Family are encouraged to report perceived risks to care and to ask questions if they do not understand what they are told or what they should do.
[2021-07-21] VITALS (17 sets, daily range): BP systolic 119–152; BP diastolic 78–106; PULSE 70–106; RESP 15–23; TEMP 35.4–36.8; O2SAT 94–100
--- NOTE | 2021-07-21 | ECHO_ITS ---
Patient Info Name: Meme Griffin Age: 21 years : 2000 Gender: Female Ht: 61 in Wt: 228 lbs BSA: 2.17 m2 HR: 86 bpm BP: 138 / 98 mmHg Heart Rhythm: Sinus Rhythm Exam Date: 07/21/2021 1:14 PM Exam Location: [facility] Patient Status: Inpatient Admit Date: 07/21/2021 Staff Ordering Physician: Rene Jha MD [employer] Management Assistant: Noé Aguilar, OLYA, RT Attending Provider: Rene Jha MD Exam Type: CA echo doppler color flow Study Info Indications I50.9 - Heart failure, unspecified Complete two-dimensional, color flow and Doppler transthoracic echocardiogram is performed with contrast to opacify the left ventricle and to improve the deliniation of the left ventricle endocardial borders. Summary 1. Left ventricular chamber dimension is severely enlarged. 2. Left ventricular systolic function is severely reduced, estimated at 20-25%. 3. Contrast was injected to improve visualization. 4. 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 5. Left atrial chamber dimension is mildly enlarged. 6. Small amount of MR due to annular dilation. 7. Moderate tricuspid regurgitation. Left Ventricle Left ventricular chamber dimension is severely enlarged. Left ventricular systolic function is severely reduced, estimated at 20-25%. The left ventricular diastolic function is normal. Contrast was injected to improve visualization. 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 Right Ventricle Right ventricular chamber dimension is mildly enlarged. Left Atria Left atrial chamber dimension is mildly enlarged. Right Atria Right atrial chamber dimension is normal. Aortic Valve The aortic valve is normal. Pulmonic Valve The pulmonic valve is not well visualized. Mitral Valve The mitral valve has normal leaflets. There is mild mitral valve regurgitation. Tricuspid Valve The tricuspid valve leaflets are not well visualized. There is moderate tricuspid valve regurgitation. Pericardium/Pleural The pericardium appears normal. Aorta The aortic root size at the sinus of Valsalva is normal. Left Ventricular Outflow Tract Name Value Normal LVOT 2D LVOT Diameter 2.0 cm LVOT Doppler LVOT Peak Gradient 2 mmHg LVOT Mean Gradient 1 mmHg LVOT VTI 8 cm LVOT VTI/AV VTI Ratio 0.6 LVOT Stroke Volume 25 ml LVOT CO 2.4 l/min LVOT CI 1.1 l/min/m2 Mitral Valve Name Value Normal MV Doppler MV Peak Gradient 2 mmHg MV Mean Gradient 0 mmHg MV Decel [place] 1,020 cm/s2 MV PHT 32 ms MV
[2021-07-21 00:02] LABS: Cholesterol 138 mg/dL (0-200); HDL Direct 21 mg/dL; Triglycerides 88 mg/dL (<150)
[2021-07-21 00:05] LABS: Hemoglobin A1C 5.1 % (<5.7)
[2021-07-21 00:13] LABS: LDL Cholesterol Direct 93 mg/dL
--- NOTE | 2021-07-21 00:13 | PC.NURSE ---
[id number] pt placed on apnea link per dr bill
[2021-07-21] MEDS: ASPIRIN 81 MG ENTERIC TABLET PO (08:21)
[2021-07-21] MEDS: ENOXAPARIN 40 MG/0.4 ML SYRINGE SUB-Q (08:21)
[2021-07-21] MEDS: carvediloL 3.125 MG TABLET PO ×2 (08:21→21:02)
[2021-07-21] MEDS: LOSARTAN POTASSIUM 25 MG TABLET PO (08:22)
[2021-07-21] MEDS: FUROSEMIDE 40 MG TABLET PO (08:22)
[2021-07-21 08:41] LABS: EDCOVIDSCREEN Negative (Negative)
[2021-07-21 10:09] LABS: Free T4 Free Thyroxine Reflex 1.63 ng/dL (0.78-2.19)
[2021-07-21 10:43] LABS: Anion Gap 12 mmol/L (8-16); Blood Urea Nitrogen 15 mg/dL (7-17); Calcium 8.4 mg/dL (8.4-10.2); Carbon Dioxide 24 mmol/L (22-30); Chloride 102 mmol/L (98-107); Estimated CRCL calculation 106 ml/min; Estimated Glomerular Filt Rate > 60; Glucose 129 mg/dL (65-110); Magnesium 1.7 mg/dL (1.6-2.3); Potassium 3.4 mmol/L (3.4-5.0); Sodium 138 mmol/L (137-145)
--- NOTE | 2021-07-21 11:42 | PM.CNCAR ---
Assessment and Plan Additional Plan This is a 21-year-old woman who has a variety of complaints none of which in my opinion would raise concern about decompensated heart failure. Her principal complaint seemed to be nausea vomiting and difficulty keeping things down off on since late last week. Her chest x-ray appears to show enlarged cardiac silhouette and some modest pulmonary vascular congestion. Her nitrate peptide levels are also elevated and for this reason she has been given the diagnosis of congestive heart failure. She has been started on low doses of carvedilol, losartan add some furosemide. It would be very useful to see this patient's echocardiogram so I can not comment further on this situation. That has yet to be performed I will hopefully be able to look at a later today and provide further impressions/recommendations. Bello Peace MD [facility] History of Present Illness History of Present Illness Consult date/time: 07/21/21 11:42 Consult reason: congestive heart failure Reason For Visit: Acute CHF; Pulmonary edema; Hypertensive urgency Narrative: This is a 21-year-old woman that I am seeing as this morning at the request of the hospitalist because of concern that she has congestive heart failure. Her chart was reviewed and the patient was seen in the [facility] center where she is currently hospitalized. She says that she does not have any previous knowledge of any sort of cardiac problems in the past she was feeling ill starting the middle of last week with symptoms of nausea and vomiting. She states she was having difficulty keeping things down was concerned that she was becoming dehydrated. She went to urgent care center on Wednesday and was told to take extra fluid she was given some fluid in the urgent care he said Wednesday she stayed home from work and was resting and generally felt better at after the end of the day. She tried to go to work again Wednesday, yesterday and had more symptoms of nausea and 1 episode of vomiting so her boss sent her to the emergency room which she was evaluated and admitted. She denies any symptoms of accumulating lower extremity edema orthopnea or PND. She states that for a short time on Wednesday morning she had some mild central chest pain. This is a dull aching sensation. She also states that since the middle of last week she will feel her heart impulse or at least be aware of her cardiac impulse when she is lying in the left lateral decubitus position. Once again she is not awakening at night because of dyspnea. Her chest x-ray appears to show enlargement of her cardiac silhouette and some evidence of pulmonary vascular congestion. A natural Avis peptide level was done which was elevated and troponin levels were done which are modestly elevated and flat. In this setting I am asked to see her in consultation. She denies any knowledge of diabetes dyslipidemia. She states there is no family history of probable coronary disease or premature cardiac . She did have preeclampsia when she was last year and as a result lost the baby. Review of Systems Constitutional: Constitutional: Reports no additional constitutional complaints Eyes: Eyes: Reports no additional eye complaints ENT: Reports system reviewed and no additional complaints, except as documented Cardiovascular: Cardiovascular: Reports as per HPI and Reports chest pain Comments: As in the HPI palpitations in the left lateral decubitus position Respiratory: Respiratory: Reports no additional respiratory complaints Gastrointestinal: Gastrointestinal: Reports nausea and Reports vomiting Musculoskeletal: Musculoskeletal: Reports no additional musculoskeletal complaints Integumentary/Breasts: Skin/Breast: Reports system reviewed and no additional complaints, except as docu Neurologic: Reports system reviewed and no additional complaints, except as documented Endocrine: Endocrine: Reports no additional endocrine com
[2021-07-21 11:48] LABS: Total Triiodothyronine (T3) 1.09 NG/ML (0.97-1.69)
[2021-07-21] MEDS: PERFLUTREN LIPID MICROSPHERES 1.5 ML VIAL DILUTED TO 10 ML TOTAL VOLUME IV PUSH (13:43)
--- NOTE | 2021-07-21 14:02 | P.PNIM_ITS ---
Progress Note: A&P Assessment and Plan (1) Acute CHF: Qualifiers: Heart failure type: unspecified Qualified Code(s): I50.9 - Heart failure, unspecified Code(s): I50.9 - Heart failure, unspecified Status: Acute Assessment and Plan: * newly diagnosed, acute diastolic congestive heart failure * Reports palpitations that Wednesday * Trops elevated but flat * Echo: EF of 20-25%, Severe diastolic dysfunction, left ventricle is severely enlarged, left atrial chamber dimension is mildly enlarged Small amount of MR due to annular dilation, moderate tricuspid regurgitation * bnp elevated 4080 * cta with pulmonary edema mention of tricuspid regurgitation * lasix 40 mg po daily. * elevated troponin is present, likely from CHF itself. * do not suspect ischemia related * cardiology consulted * clint olson. (2) Hypertensive urgency: Code(s): I16.0 - Hypertensive urgency Status: Acute Assessment and Plan: * Current Blood pressure 133/106 * trend blood pressure * hypertension uncontrolled * HTN early in her age * check TSH: 4.980 * cortisol: 14.30 * could be related to her morbid obesity * could have underlying sleep apnea * losartan, lasix, coreg * apnea link to evaluate for HONORIO * Adjust medications as needed (3) Chronic hypertension: Code(s): I10 - Essential (primary) hypertension Status: Acute Assessment and Plan: * See above (4) Pulmonary edema: Qualifiers: Chronicity: acute Qualified Code(s): J81.0 - Acute pulmonary edema Code(s): J81.1 - Chronic pulmonary edema Status: Acute Assessment and Plan: * chest xray shows cardiomegaly * CTA shows CHF with mild cardiomegaly, pulmonary vascular congestion, mild pulmonary edema, and tricuspid regurg. * Lasix * BB * Strict I & O (5) Elevated troponin: Code(s): R77.8 - Other specified abnormalities of plasma proteins Status: Acute Assessment and Plan: * Does not seem ischemic in nature * Probably related to CHF * flat trajectory: 0.246, 0.236, 0.238 * could be from viral syndrome (myocarditis) vs chf related * Covid swabbed and negative * aspirin 81mg daily * check lipid profile (6) Morbid obesity with BMI of 45.0-49.9, adult: Code(s): E66.01 - Morbid (severe) obesity due to excess calories; Z68.42 - Body mass index [BMI] 45.0-49.9, adult Status: Acute Assessment and Plan: * a1c 5.1 * lipid profile Cholesterol 138, LDL 93, HDL 21, Triglycerides 88 * Sonographer consult * Education about food choices (7) Tricuspid regurgitation: Code(s): I07.1 - Rheumatic tricuspid insufficiency Status: Acute Assessment and Plan: * CTA shows this * ECHO confirms with moderate tricuspid regurge Additional Plan # nausea, vomiting, cough, sob: sounds like suffering from viral syndrome. COVID swabbed negative. not hypoxic. Could be related to chest palpitations and CHF Time Spent With Patient Time with patient: Greater than 35 minutes Subjective Date/time seen: 07/21/21 11:00 Interval history: Patient is a 21 year old female with a past medical history of HTN and preeclampsia who presented to the ED with nausea, cough, and chest discomfort. Today she stated that she was feeling ok. She said that she can hear her heart beat. She also has noticed palpitations over the last
--- NOTE | 2021-07-21 14:02 | PM.IMPN ---
Progress Note: A&P Assessment and Plan (1) Acute CHF: Qualifiers: Heart failure type: unspecified Qualified Code(s): I50.9 - Heart failure, unspecified Code(s): I50.9 - Heart failure, unspecified Status: Acute Assessment and Plan: newly diagnosed, acute diastolic congestive heart failure Reports palpitations that Wednesday Trops elevated but flat Echo: EF of 20-25%, Severe diastolic dysfunction, left ventricle is severely enlarged, left atrial chamber dimension is mildly enlarged Small amount of MR due to annular dilation, moderate tricuspid regurgitation bnp elevated 4080 cta with pulmonary edema mention of tricuspid regurgitation lasix 40 mg po daily. elevated troponin is present, likely from CHF itself. do not suspect ischemia related cardiology consulted clint olson. (2) Hypertensive urgency: Code(s): I16.0 - Hypertensive urgency Status: Acute Assessment and Plan: Current Blood pressure 133/106 trend blood pressure hypertension uncontrolled HTN early in her age check TSH: 4.980 cortisol: 14.30 could be related to her morbid obesity could have underlying sleep apnea losartan, lasix, coreg apnea link to evaluate for HONORIO Adjust medications as needed (3) Chronic hypertension: Code(s): I10 - Essential (primary) hypertension Status: Acute Assessment and Plan: See above (4) Pulmonary edema: Qualifiers: Chronicity: acute Qualified Code(s): J81.0 - Acute pulmonary edema Code(s): J81.1 - Chronic pulmonary edema Status: Acute Assessment and Plan: chest xray shows cardiomegaly CTA shows CHF with mild cardiomegaly, pulmonary vascular congestion, mild pulmonary edema, and tricuspid regurg. Lasix BB Strict I & O (5) Elevated troponin: Code(s): R77.8 - Other specified abnormalities of plasma proteins Status: Acute Assessment and Plan: Does not seem ischemic in nature Probably related to CHF flat trajectory: 0.246, 0.236, 0.238 could be from viral syndrome (myocarditis) vs chf related Covid swabbed and negative aspirin 81mg daily check lipid profile (6) Morbid obesity with BMI of 45.0-49.9, adult: Code(s): E66.01 - Morbid (severe) obesity due to excess calories; Z68.42 - Body mass index [BMI] 45.0-49.9, adult Status: Acute Assessment and Plan: a1c 5.1 lipid profile Cholesterol 138, LDL 93, HDL 21, Triglycerides 88 Wireless Consultant consult Education about food choices (7) Tricuspid regurgitation: Code(s): I07.1 - Rheumatic tricuspid insufficiency Status: Acute Assessment and Plan: CTA shows this ECHO confirms with moderate tricuspid regurge Additional Plan # nausea, vomiting, cough, sob: sounds like suffering from viral syndrome. COVID swabbed negative. not hypoxic. Could be related to chest palpitations and CHF Time Spent With Patient Time with patient: Greater than 35 minutes Subjective Date/time seen: 07/21/21 11:00 Interval history: Patient is a 21 year old female with a past medical history of HTN and preeclampsia who presented to the ED with nausea, cough, and chest discomfort. Today she stated that she was feeling ok. She said that she can hear her heart beat. She also has noticed palpitations over the last couple of days that she stated has started on Wednesday. She denies shortness of breath, nausea, weakness, fatigue, headaches, dizziness, sweats, fevers, chills, or visual disturbances. I did ask the patient about her hypertension. She stated that it was been a problem since she was 14 And she was told is to lose weight. she did have 1 which ended in a stillborn at 20 weeks due to preeclampsia and uncontrolled high blood pressure. Review of Systems Review of Systems: All systems reviewed & are unremarkable except as noted in
[2021-07-21 14:46] LABS: Basophils Absolute Auto 0.1 K/mm3 (0.0-0.1); Basophils Percent Auto 0.6 % (0.2-1.2); Eosinophils Absolute Auto 0.2 K/mm3 (0-0.3); Eosinophils Percent Auto 2.2 % (0-4.4); Hematocrit 31.4 % (37.0-47.0); Hemoglobin 9.8 g/dL (12.0-15.0); Immature Granulocyte Absolute 0.04 K/mm3 (0.00-0.031); Immature Granulocyte Percent A 0.4 % (0-0.5); Lymphocytes Absolute Auto 3.12 K/mm3 (0.9-3.2); Mean Corpuscular HGB Conc 31.2 g/dl (32-36); Mean Corpuscular Hemoglobin 25.5 pg (26-34); Mean Corpuscular Volume 81.6 fl (80-100); Mean Platelet Volume 10.9 fl (7.4-10.4); Monocytes Absolute Auto 0.7 K/mm3 (0.1-0.6); Monocytes Percent Auto 6.1 % (2.6-8.5); Neutrophils Absolute Auto 6.6 K/mm3 (1.3-6.7); Neutrophils Percent Auto 61.7 % (45.5-73.1); Platelet Count Result 325 k/mm3 (150-375); Red Blood Count 3.85 M/mm3 (4.2-5.4); Red Cell Distribution Width 15.7 % (11.5-14.5); White Blood Count 10.8 K/mm3 (4.5-10.0)
--- NOTE | 2021-07-21 14:48 | PM.PNCARD ---
Progress Note: A&P Additional Plan unfortunate 21-year-old woman with: Relatively severe dilated cardiomyopathy. I do not believe she is in a state of decompensated heart failure in terms of the reason she is admitted to the hospital. Her chief complaint seems to be nausea and vomiting. 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 I am going to continue her carvedilol, transition her from losartan to Entresto and start spironolactone today. We will put in a referral for a life vest because of her very low ejection fraction and observe her at least until tomorrow. Because of her unfortunately young age I would recommend that she is given an appointment to follow-up with the Heart failure group at [facility] as she could clearly require advanced heart failure support that be cannot provide here at this location Bello Peace MD [facility] Subjective Date/time seen: Date of hgespie42/27/21 14:48 Interval history: follow-up visit in this 21-year-old woman with: Admission to the hospital following episodes of nausea and vomiting and found serendipitously to have a cardiomyopathy. The patient's cardiac silhouette was rather large on chest x-ray. She did not really have any complaints of overt decompensated heart failure in my opinion. 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 It is also possible this is a late presentation of a cardiomyopathy following last year's miscarriage and or postviral or you or idiopathic. Long discussion with the patient about the seriousness of this diagnosis this afternoon. She appears to understand all of this quite well. Exam Const: General: comfortable and no acute distress Other: Pleasant young obese white female no distress HENMT: Mouth: Yes moist mucous membranes Eyes: Sclera: sclerae normal Pupils: Equal, round and reactive pupils present Neck: Neck: supple Other: difficult to assess JVD given her body habitus Resp: Effort & Inspection: normal respiratory effort Auscultation: clear to auscultation bilaterally Cardio: Rate: regular rate Rhythm: regular rhythm Other: PMI difficult to palpate GI: GI Palp: Yes Soft to palpation Auscultation: normal bowel sounds Neuro: Cognition (Neuro): normal cognition Extrem: General: normal to inspection Objective Data Vital Signs Vital Signs: Vital Signs - 24 hr 07/20/21 15:33 07/20/21 17:00 07/20/21 17:06 Temperature 36.1 C L Pulse Rate 122 H 132 H 121 H Respiratory Rate 16 19 23 H Blood Pressure 150/113 H 157/119 H 152/104 H Pulse Oximetry 100 100 100 07/20/21 17:15 07/20/21 17:17 07/20/21 17:30 Temperature Pulse Rate 117 H 116 H Respiratory Rate 34 H 30 H Blood Pressure 152/120 H Pulse Oximetry 100 100 100 07/20/21 17:32 07/20/21 17:53 07/20/21 18:00 Temperature Pulse Rate Respiratory Rate Blood Pressure 145/132 H Pulse Oximetry 100 99 100 07/20/21 18:02 07/20/21 18:22 07/20/21 18:24 Temperature Pulse Rate Respiratory Rate Blood Pressure 166/125 H 157/121 H Pulse Oximetry 99 99 99 07/20/21 18:47 07/20/21 19:00 07/20/21 19:15 Temperature Pulse Rate 112 H Respiratory Rate 18 Blood Pressure 147/102 H Pulse Oximetry 98 99 99 07/20/21 19:28 07/20/21 19:30 07/20/21 20:33 Temperature Pulse Rate 117 H 117 H 93 Respiratory Rate 30 H 28 H 24 H Blood Pressure 155/124 H 136/104 H Pulse Oximetry 96 98 100 07/20/21 21:15 07/20/21 22:00 07/20/21 23:55 Temperature 36.8 C Pulse Rate 88 90 Respiratory Rate 24 H Blood Pressure 137/105 H Pulse Oximetry 97 99 07/21/21 00:
[2021-07-21 17:28] LABS: SARS-CoV-2 RNA PCR Negative
[2021-07-21] MEDS: SACUBITRIL/VALSARTAN 24-26 MG TABLET 1 TAB PO (21:02)
[2021-07-22] VITALS (12 sets, daily range): BP systolic 97–124; BP diastolic 71–94; PULSE 77–95; RESP 16–20; TEMP 36.1–37.1; O2SAT 95–98
[2021-07-22 06:10] LABS: Basophils Absolute Auto 0.1 K/mm3 (0.0-0.1); Basophils Percent Auto 0.6 % (0.2-1.2); Eosinophils Absolute Auto 0.2 K/mm3 (0-0.3); Eosinophils Percent Auto 2.2 % (0-4.4); Hematocrit 33.3 % (37.0-47.0); Hemoglobin 10.4 g/dL (12.0-15.0); Immature Granulocyte Absolute 0.03 K/mm3 (0.00-0.031); Immature Granulocyte Percent A 0.3 % (0-0.5); Lymphocytes Absolute Auto 3.81 K/mm3 (0.9-3.2); Lymphocytes Percent Auto 36.4 % (18.3-44.2); Mean Corpuscular HGB Conc 31.2 g/dl (32-36); Mean Corpuscular Hemoglobin 25.5 pg (26-34); Mean Corpuscular Volume 81.6 fl (80-100); Mean Platelet Volume 10.5 fl (7.4-10.4); Monocytes Absolute Auto 0.6 K/mm3 (0.1-0.6); Monocytes Percent Auto 5.6 % (2.6-8.5); Neutrophils Absolute Auto 5.8 K/mm3 (1.3-6.7); Neutrophils Percent Auto 54.9 % (45.5-73.1); Platelet Count Result 306 k/mm3 (150-375); Red Blood Count 4.08 M/mm3 (4.2-5.4); Red Cell Distribution Width 15.7 % (11.5-14.5); White Blood Count 10.5 K/mm3 (4.5-10.0)
[2021-07-22 06:35] LABS: Alanine Aminotransferase 14 U/L (4-35); Albumin Level 3.8 g/dL (3.5-5.1); Alkaline Phosphatase 77 U/L (38-126); Anion Gap 9 mmol/L (8-16); Aspartate Amino Transferase 18 U/L (14-36); Blood Urea Nitrogen 15 mg/dL (7-17); Calcium 8.3 mg/dL (8.4-10.2); Carbon Dioxide 25 mmol/L (22-30); Chloride 104 mmol/L (98-107); Estimated CRCL calculation 120 ml/min; Estimated Glomerular Filt Rate > 60; Glucose 96 mg/dL (65-110); Magnesium 1.8 mg/dL (1.6-2.3); Potassium 3.5 mmol/L (3.4-5.0); Sodium 138 mmol/L (137-145)
[2021-07-22] MEDS: FUROSEMIDE 40 MG TABLET PO (08:27)
[2021-07-22] MEDS: SACUBITRIL/VALSARTAN 24-26 MG TABLET 1 TAB PO (08:27)
[2021-07-22] MEDS: carvediloL 3.125 MG TABLET PO (08:27)
[2021-07-22] MEDS: ENOXAPARIN 40 MG/0.4 ML SYRINGE SUB-Q (08:27)
[2021-07-22] MEDS: ASPIRIN 81 MG ENTERIC TABLET PO (08:27)
[2021-07-22] MEDS: SPIRONOLACTONE 25 MG TABLET PO (08:28)
--- NOTE | 2021-07-22 09:59 | PM.PNCARD ---
Progress Note: A&P Assessment and Plan (1) Acute CHF: Qualifiers: Heart failure type: unspecified Qualified Code(s): I50.9 - Heart failure, unspecified Code(s): I50.9 - Heart failure, unspecified Status: Acute Assessment and Plan: New diagnosis of nonischemic cardiomyopathy. Not exhibiting any clinical evidence of decompensated heart failure. Echocardiogram from yesterday showed severely reduced left ventricular systolic function with an ejection fraction of 20-25%. 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 Mild MR, moderate TR. Continue Entresto . Will up titrate as OP if BP allows. Continue spironolactone 25 mg daily Continue carvedilol 3.125 b.i.d. Continue furosemide 20mg daily 20mEq KCLx1 Life vest has been ordered I do not see an indication for aspirin. This can be discontinued. Subjective Date/time seen: 07/22/21 09:59 Interval history: Cardiology follow-up for nonischemic cardiomyopathy Date of service 07/22/2021: Does not have any complaints today of any kind. Her nausea and vomiting have resolved. Had a lengthy discussion with her regarding her diagnosis and plans for management. She is awaiting approval for Life Vest. Review of Systems Constitutional: Constitutional: Reports no additional constitutional complaints Eyes: Eyes: Reports no additional eye complaints ENT: Reports system reviewed and no additional complaints, except as documented Cardiovascular: Cardiovascular: Reports as per HPI and Reports chest pain Respiratory: Respiratory: Reports no additional respiratory complaints Gastrointestinal: Gastrointestinal: Reports nausea and Reports vomiting Musculoskeletal: Musculoskeletal: Reports no additional musculoskeletal complaints Integumentary/Breasts: Skin/Breast: Reports system reviewed and no additional complaints, except as docu Neurologic: Reports system reviewed and no additional complaints, except as documented Endocrine: Endocrine: Reports no additional endocrine complaints Hematologic/Lymphatic: Hematologic/Lymphatic: Reports no additional hematologic/lymphatic complaints Allergic/Immunologic: Allergic/Immunologic: Reports no additional allergic/immunologic complaints Exam Const: General: comfortable and no acute distress Other: Young female lying comfortably in bed. Alert oriented. Pleasant and cooperative. HENMT: Ears: hearing grossly normal bilaterally Mouth: Yes moist mucous membranes Eyes: General: appearance normal, both eyes and all related structures Sclera: sclerae normal Pupils: Equal, round and reactive pupils present Neck: Neck: supple Other: difficult to assess JVD given her body habitus Resp: Effort & Inspection: normal respiratory effort Auscultation: clear to auscultation bilaterally Other: Clear breath sounds no obvious rales or wheezes Cardio: Rate: regular rate Rhythm: regular rhythm Heart sounds: no murmurs Other: PMI difficult to palpate GI: Auscultation: normal bowel sounds Skin: General skin exam: normal color Neuro: Cranial nerves: Yes Equal, round and reactive pupils present Cognition (Neuro): normal cognition Extrem: General: normal to inspection Other: Good distal pulses, no edema Psych: Appearance: grossly normal Mental Status: mental status grossly normal Objective Data Vital Signs Vital Signs: Vital Signs - 24 hr 07/21/21 10:00 07/21/21 10:37 07/21/21 12:00 Temperature 36.7 C Pulse Rate 98 96 Respiratory Rate 23 H Blood Pressure 119/93 H 133/106 H Pulse Oximetry 98 07/21/21 14:00 07/21/21 16:00 07/21/21 18:00 Temperature 36.8 C Pulse Rate 92 99 94 Respiratory Rate 17 Blood Pressure 138/101 H Pulse Oximetry 99 07/21/21 20:00 07/21/21 21:02 07/21/21 22:00 Temperature 35.4 C L Pulse Rate 101 H 106 H 95 Respiratory Rate 16 Blood Pressure 131/101 H Pulse Oximetry 96 07/22/21 00:00 07/22/21 02:00
[2021-07-22] MEDS: POTASSIUM CHLORIDE 20 MEQ TABLET PO (12:07)
--- NOTE | 2021-07-22 15:08 | PM.DS ---
DS: Admitting Diagnosis Discharge Date 07/23/21 Admitting Diagnosis N/V SOB DS: Discharge Diagnosis Discharge Diagnosis (1) Acute CHF: Qualifiers: Heart failure type: unspecified Qualified Code(s): I50.9 - Heart failure, unspecified Code(s): I50.9 - Heart failure, unspecified Status: Acute Assessment and Plan: Patient is a 21-year-old woman with a history preeclampsia and miscarriage at 20 weeks July 2020, who presented to the emergency room with nausea, vomiting and shortness of breath. The patient had nausea and vomiting on Wednesday and went to an urgent care where she received IV fluids and oral Zofran and discharged home. Then on Wednesday she was feeling worse as well as shortness of breath and chest discomfort. She came to the emergency room for further evaluation and monitoring. Initial vitals showed elevated blood pressure 150/113, tachycardic at 120, respiratory rate 16, afebrile, normal oxygenation on room air. Initial labs showed leukocytosis at 13,400, normocytic anemia with a hemoglobin of 12, hematocrit 35%, normal differential, elevated D-dimer at 4.26. Elevated glucose at 129. Otherwise normal BMP. BNP was elevated at 4000. Elevated troponins that were flat at 0.23. Elevated TSH but normal free T4 and total T3. Normal cortisol. Normal cholesterol. Negative for COVID. Chest x-ray showed cardiomegaly. Patient was admitted into the hospital for further evaluation workup for cardiomegaly and nausea/vomiting. CTA of her chest showed no PE. Congestive heart failure with mild cardiomegaly, pulmonary vascular congestion mild pulmonary edema and tricuspid regurgitation. Echocardiogram was ordered for further evaluation showing Left ventricular chamber dimension is severely enlarged. Left ventricular systolic function is severely reduced, estimated at 20-25%. 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 Left atrial chamber dimension is mildly enlarged. Small amount of MR due to annular dilation. Moderate tricuspid regurgitation. Cardiology was consulted who started the patient on Entresto, spironolactone, carvedilol, furosemide daily. The patient was given a life vest due to severe systolic dysfunction. She was educated about the use of her life vest and follow-up with cardiology for further evaluation after discharge. Patient is feeling well at this time without any more symptoms. She is stable for discharge. She needs to find a primary care provider for follow-up. Patient understands agrees the plan all questions answered. (2) Hypertensive urgency: Code(s): I16.0 - Hypertensive urgency Status: Acute Assessment and Plan: Blood pressure was 124/72. Medications have been adjusted due to systolic dysfunction with better control her blood pressure. (3) Chronic hypertension: Code(s): I10 - Essential (primary) hypertension Status: Acute Assessment and Plan: See above (4) Pulmonary edema: Qualifiers: Chronicity: acute Qualified Code(s): J81.0 - Acute pulmonary edema Code(s): J81.1 - Chronic pulmonary edema Status: Acute Assessment and Plan: Lungs are clear. No shortness of breath at this time. Repeat chest x-ray due to some chest discomfort when lying on her left side showed cardiomegaly without any other pulmonary findings. (5) Elevated troponin: Code(s): R77.8 - Other specified abnormalities of plasma proteins Status: Acute Assessment and Plan: Troponins were flat. Most likely due to systolic dysfunction. Nonischemic in nature per Cardiology. (6) Morbid obesity with BMI of 45.0-49.9, adult: Code(s): E66.01 - Morbid (severe) obesity due to excess calories; Z68.42 - Body mass index [BMI] 45.0-49.9, adult Status: Acute Assessment and Plan: a1c 5.1 lipid profile Cholesterol 138, LDL 93, HDL 21, Triglycerides 88-stable for a heal
== END 2021-07-22 15:38 | disposition home or self-care (01) | DRG 291 ==
LOC: ANHED 19:53 → ANHCPC 20:22
PROVIDERS: Emergency Medicine; Nurse Practitioner; Admitting Provider Internal Medicine; Emergency Provider Emergency Medicine; Visit Provider Physician Assistant
DX: I11.0 Hypertensive heart disease with heart failure (principal); I50.31 Acute diastolic (congestive) heart failure; Z68.42 Body mass index [BMI] 45.0-49.9, adult; E66.01 Morbid (severe) obesity due to excess calories; I16.0 Hypertensive urgency; Z20.822 Contact with and (suspected) exposure to COVID-19; R77.8 Other specified abnormalities of plasma proteins; I07.1 Rheumatic tricuspid insufficiency; I42.8 Other cardiomyopathies; Z79.899 Other long term (current) drug therapy
CPT/HCPCS: 36415; 71045; 71046; 71275; 80048; 80053; 80061; 81003; 81025; 82533; 83036; 83735; 83880; 84439; 84443; 84480; 84484; 85025; 85380; 85610; 85730; 87426; 93005; 93306; 94762; 96360; 96372; 96374; 96375; 99285; A9270; C9803; G0378; G0379; J1650; J1885; J1940; J2405; Q9957; Q9967; U0003; U0005

== ENCOUNTER 2021-12-09 22:32 | Emergency (ER) | payer BC, SELFPAY ==
--- NOTE | ~2021-12-09 | XR_ITS ---
EXAMINATION: XR chest 1V portable DATE: 12/09/2021 22:52 INDICATION: Left-sided chest pain. TECHNIQUE: frontal view of the chest was obtained. COMPARISON: Chest radiograph dated 07/14/2021 FINDINGS: The lungs remain clear with no focal airspace opacities, pulmonary edema, pleural effusion or pneumot horax. Unchanged cardiomegaly. Visualized bones and soft tissues are unremarkable. IMPRESSION: 1. Cardiomegaly. Reviewed, dictated and finalized at location A. [employer] IMPRESSION: 1. Cardiomegaly.
--- NOTE | ~2021-12-09 | CT_ITS ---
EXAMINATION: CT abdomen pelvis w con DATE: 12/10/2021 00:08 INDICATION: Right upper quadrant abdominal pain. TECHNIQUE: Computed tomography (CT) of the abdomen and pelvis was performed with 100 mL Omnipaque 350 intravenous contrast. Automated exposure control and iterative reconstruction technique were employe d. The dose-length product was 1331.44 mGy-cm. COMPARISON: Chest CT 07/20/2021 FINDINGS: The visualized portions of the lung bases are clear without pneumonia or pleural effusion. The heart size is normal. No pericardial effusion. There is diffuse hepatic steatosis. There are gall stones in the gallbladder, which is normal in size. The spleen, pancreas, adrenal glands, and kidneys are normal. There are no dilated loops of bowel. The appendix is normal. There are no pathologically enlarged lymph nodes. There is no free intraperitoneal fluid. There is mild thoracolumbar spondylosi s. There is mild chronic height loss of multiple thoracic vertebral bodies. There are Schmorl's nodes at most levels. IMPRESSION: 1. Cholelithiasis. No evidence of acute cholecystitis. 2. Diffuse hepatic steatosis. Reviewed, dictated and finalized at location A. MAKER
--- NOTE | 2021-12-09 22:32 | ECG_ITS ---
Measurements Intervals [place] Rate: 91 P: 18 CA: 147 QRS: 12 QRSD: 98 T: 19 QT: 367 QTc: 453 Interpretive Statements SINUS RHYTHM DELAYED PRECORDIAL R/S TRANSITION CONSIDER INFERIOR INFARCT, AGE INDETERMINATE BORDERLINE T WAVE ABNORMALITY- ANTERIOR LEADS BASELINE ARTIFACT- II, III, AVF ABNORMAL ECG Electronically Signed On 12-10-2021 7:08:46 [employer] by Dashawn Mar D.O.
[2021-12-09 22:35] VITALS: BP 132/90; PULSE 100; RESP 18; TEMP 36.3; O2SAT 98
--- NOTE | 2021-12-09 22:40 | ED.GENADULT ---
HPI - General Adult General Chief complaint: Chest Pain Stated complaint: CHF Time Seen by Provider: 12/09/21 22:34 Source: RN notes reviewed History of Present Illness HPI narrative: Patient presents emergency department from home for also chest pain. Patient states that been seen around 6 PM she has been having intermittent pain under her left breast pain is described as sharp and stabbing is intermittent. States that it is associated with some shortness of breath patient states she has a history of CHF and is followed by Dr. Peace she states he is it is similar symptoms she had on last episode of CHF and came for further evaluation she denies any fevers or chills abdominal pain nausea vomiting diarrhea or any other symptoms. States that she did miss 2 days of her medication but resumed them yesterday Related Data Home Medications Medication Instructions Recorded Confirmed carvedilol [Coreg] 6.25 mg PO Q12HR 12/09/21 Allergies Allergy/AdvReac Type Severity Reaction Status Date / Time No Known Allergies Allergy Verified 07/29/21 14:25 Review of Systems Review of Systems: Gen.: Denies fevers or chills Eyes: Denies eye pain or visual change ENT: Denies congestion Respiratory: Reports shortness of breath CV: Reports left-sided chest pain GI: Denies abdominal pain nausea, emesis or diarrhea Musculoskeletal: Denies back pain or muscle pain Neuro: Denies numbness, tingling, weakness or focal weakness Skin: Denies rash Except as documented, all other systems reviewed and negative [facility] Past Medical History Medical History 25 to 26 weeks gestation of Chronic hypertension Chronic hypertension with superimposed preeclampsia demise Gestational hypertension Henoch Schonlein syndrome at age 3. Hypertensive urgency IUGR (intrauterine growth restriction) Oligohydramnios PIH ( induced hypertension) Proteinuria Pulmonary edema Family History Family History Grandparent Hypertension Cerebrovascular accident Family history of type 2 diabetes mellitus Social History Social History Social History: Single Smoking status: Never smoker Second hand tobacco smoke exposure: No Alcohol intake: never Substance use: never Substance use type: does not use Gender identity (if verbalized by the patient): Female Sexual Orientation (if Verbalized by the Patient): Straight or Heterosexual Spiritual care concerns: No Exam Narrative: APPEARANCE: No acute distress, nontoxic, resting in bed EYES: EOMI HEENT: Normocephalic, atraumatic, OMM RESPIRATORY: No respiratory distress Clear to auscultation bilaterally with no rhonchi wheezing or rales. CARDIOVASCULAR: Regular rate and rhythm without murmurs rubs or gallops. ABDOMINAL: Soft, nondistended tender palpation epigastric and right upper quadrant no tenderness left upper quadrant right lower quadrant left lower quadrant no rebound or guarding MUSCULOSKELETAl: Moves all extremities. No clubbing, cyanosis or edema. NEURO: Awake and alert. Following commands, speech normal, no focal deficits SKIN:: Warm, dry. No rashes lesions or abrasions PSYCHIATRIC: Normal affect/mood, Course Course Emergency Course: Patient states pain is completely resolved at this time Dr. Myriam Henriquez paged Discuss Dr. Kenny presentation work-up agrees plan for discharge follow-up as an outpatient Patient states that they are feeling much better at this time. States abdominal pain has resolved. Repeat abdominal exam shows the patient's abdomen to be soft and nontender. Discussed with patient results of workup and diagnosis. Discussed need for follow-up with primary care physician, reasons to return to the emergency department in proper use of medication. Patient understands and agrees to current
[2021-12-09 23:03] LABS: Alanine Aminotransferase 110 U/L (4-35); Albumin Level 4.5 g/dL (3.5-5.1); Alkaline Phosphatase 119 U/L (38-126); Anion Gap 10 mmol/L (8-16); Aspartate Amino Transferase 212 U/L (14-36); Bilirubin,Total 1.1 mg/dL (0.2-1.3); Blood Urea Nitrogen 16 mg/dL (7-17); Calcium 9.2 mg/dL (8.4-10.2); Carbon Dioxide 24 mmol/L (22-30); Chloride 103 mmol/L (98-107); Estimated CRCL calculation 129 ml/min; Estimated Glomerular Filt Rate > 60; Glucose 150 mg/dL (65-110); Lipase 55 U/L (23-300); Sodium 137 mmol/L (137-145)
[2021-12-09 23:04] LABS: Prothrombin Time 12.8 Seconds (11.1-14.7)
[2021-12-09 23:05] LABS: Basophils Percent Auto 0.3 % (0.2-1.2); Eosinophils Absolute Auto 0.2 K/mm3 (0-0.3); Eosinophils Percent Auto 1.4 % (0-4.4); Hematocrit 35.9 % (37.0-47.0); Hemoglobin 11.9 g/dL (12.0-15.0); Immature Granulocyte Absolute 0.05 K/mm3 (0.00-0.031); Immature Granulocyte Percent A 0.4 % (0-0.5); Lymphocytes Absolute Auto 2.04 K/mm3 (0.9-3.2); Lymphocytes Percent Auto 17.2 % (18.3-44.2); Mean Corpuscular HGB Conc 33.1 g/dl (32-36); Mean Corpuscular Hemoglobin 28.3 pg (26-34); Mean Corpuscular Volume 85.5 fl (80-100); Mean Platelet Volume 10.7 fl (7.4-10.4); Monocytes Absolute Auto 0.5 K/mm3 (0.1-0.6); Monocytes Percent Auto 4.5 % (2.6-8.5); Neutrophils Percent Auto 76.2 % (45.5-73.1); Partial Thromboplastin Time 22.5 SECONDS (22.3-36.8); Platelet Count Result 247 k/mm3 (150-375); Red Cell Distribution Width 13.8 % (11.5-14.5); White Blood Count 11.9 K/mm3 (4.5-10.0)
[2021-12-09 23:12] LABS: NT Pro B Type Natriuretic Pept 152 pg/mL (5-100)
[2021-12-09 23:15] LABS: Troponin I < 0.012 ng/mL (0.000-0.034)
[2021-12-09] MEDS: ASPIRIN 81 MG CHEWABLE TABLET 324 MG PO (23:44)
[2021-12-10 01:11] VITALS: BP 113/73; PULSE 86; RESP 22; O2SAT 100
[2021-12-10 02:02] LABS: Troponin I < 0.012 ng/mL (0.000-0.034)
[2021-12-10 03:50] VITALS: BP 121/73; PULSE 92; RESP 16; O2SAT 100
== END 2021-12-10 03:49 | disposition home or self-care (01) ==
PROVIDERS: Emergency Medicine; Emergency Provider Emergency Medicine; PCP Family Medicine
DX: R07.89 Other chest pain (principal); R10.11 Right upper quadrant pain; I50.9 Heart failure, unspecified; I11.0 Hypertensive heart disease with heart failure; R94.31 Abnormal electrocardiogram [ECG] [EKG]
CPT/HCPCS: 36415; 71045; 74177; 80053; 81025; 83690; 83880; 84484; 85025; 85610; 85730; 93005; 99284; A9270; Q9967